=== PATIENT | female | born 1955 | race Caucasian/White ===

== ENCOUNTER 2024-09-11 08:36 | Outpatient (AMB) | payer MEDICARE, OTHER, SELFPAY ==
--- NOTE | 2024-09-11 08:41 | MHC.OFFVIS ---
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 Patient reports ongoing pain for about 4 years. She states that her pain is on the lateral aspect of the hip and occasionally goes down to her ankle. She is having a difficulty putting full weight on her left side. Patient is taking tylenol and Advil with no relief. She has tried PT when she went to [place] a couple years back with no relief. 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 Hernandez is a 69-year-old female with past medical history significant for hypothyroidism and hypercholesterolemia. Patient reports that she had a right knee replacement in 2020 with [facility] in [place]. After the knee replacement the patient reports that she continued to have pain in the left lower extremity. The pain would radiate from the hip into the quad and occasionally down her leg. The recommendation was to perform multiple rounds of physical therapy. After the patient had failed multiple rounds of physical therapy she was referred to [facility] where she underwent a revision left total knee replacement. Again, she went through multiple rounds of physical therapy with continuation of pain. [facility] records are scanned into the patient's chart. While working with physical therapy, two different physical therapist suggested that her pain appear to be stemming from her left hip. She reports that she is unable to do perform the activities that she used to i.e. cleaning, grocery shopping, or ambulating for any length of time. When the patient is grocery shopping she has to use a shopping cart to assist with ambulation. She is also using a cane at baseline and when her pain is severe she uses a walker. Additionally, she has had to hire a house mover supervisor because she is unable to bend. The left hip pain is located along the lateral aspect into the groin and occasionally down the entire left lower extremity to her foot. [facility] Surgical History (Updated 09/11/24 @ 08:54 by Tlyer Ge) History of total left knee replacement (TKR) History of revision of total knee arthroplasty Social History (Updated 09/11/24 @ 08:50 by Tyler Ge) Alcohol intake: never Patient Tobacco Use Status: Never used Tobacco Current occupational status: retired Current occupation: right hand dominant Review of Systems Const All systems reviewed & are unremarkable except as noted in HPI and below Physical Exam Vital Signs: BMI result Body Mass Index 32.2 Const General: cooperative, healthy appearing and no acute distress Resp Effort & Inspection: normal respiratory effort and able to speak in complete sentences Extrem Other: Left hip able to perform straight leg raise with pain. Extreme limitation with internal and external rotation with reproduction of pain in the groin. No tenderness to palpation over the greater trochanteric bursa. 4/5 strength with resisted hip flexion, knee extension, abduction and adduction. NVI. Assessment & Plan Assessment & Plan (1) Osteoarthritis of left hip: Code(s): M16.12 - Unilateral primary osteoarthritis, left hip Category: Medical Plan Ms. Hernandez is a 69-year-old female with past medical history significant for hypothyroidism and hypercholesterolemia. Patient reports that she had a right knee replacement in 2020 with [facility] in [place]. After the knee replacement the patient reports that she continued to have pain in the left lower extremity. The pain would radiate from the hip into the quad and occasionally down her leg. The recommendation was to perform multiple rounds of physical therapy. After the patient had failed multiple rounds of physical therapy she was referred to [facility] with Dr. Andrew where she underwent a revision left total knee replacement. Again, she went through multiple rounds of physical therapy with continuation of pain. [facility] records are scanned into the patient's chart for reference. While working with physical therapy, two different physical therapist suggested that her pain appear to be stemming from her left hip. She reports that she is unable to do perform the activities that she used to i.e. cleaning, grocery shopping, or ambulating for any length of time. When the patient is grocery shopping she has to use a shopping cart to assist with ambulation. She is also using a cane at baseline and when her pain is severe she uses a walker. Additionally, she has had to hire a house mover supervisor because she is unable to bend. The left hip pain is located along the lateral aspect into the groin and occasionally down the entire left lower extremity to her foot. While in the office today, x-rays were obtained and significant severe left hip osteoarthritis. The patient is looking for surgical intervention as this is greatly impacting her quality of life and performance of ADLs. Overall the patient reports that she is healthy with only a past medical history significant for hypothyroidism and high cholesterol. She reports that she sees her PCP every 6 months for a physical. She most recently believes that within the past 2 months she was seen for her most recent physical and there were no concerns. I have set up an appointment with Dr. Silver to discuss left hip total joint replacement, this appointment is scheduled on 09/17/2024. In addition, I have also spoken with our nurse navigator who will see the patient on Tuesday for further discussion as well. A workload message has been sent to her at this time. Patient will follow up on Tuesday with Dr. Silver, sooner if needed. X-rays of the left hip which were obtained while in the office today and were reviewed by me, Chana Plaza PA-C, revealed severe osteoarthritis. Orders: Orders XR hip LT min 2V Today M25.559 - Pain in unspecified hip Coding Level of Care Code New Pt Level 4 (15198) Diagnoses Osteoarthritis of left hip M16.12
[2024-09-11 08:51] VITALS: BMI 32.2
--- OUTSIDE RECORDS SUMMARY | 2024-09-11 08:54 | XMS_ITS | Clinical Summary ---
Author Organization [facility] Address [address] [place] [address] Phone Care Team Providers Care Call Center Supervisor Name Role Phone Heron Deleon DO Primary Care Provider [phone] Allergies Active Allergy Reactions Criticality Noted Date Comments Sulfa (Sulfonamide Antibiotics) Nausea and/or Vomiting,Unknown 01/27/2022 Medications levothyroxine (SYNTHROID, LEVOTHROID) 75 MCG tablet TAKE 1 TABLET BY MOUTH EVERY MORNING ON EMPTY STOMACH FOR 90 DAYS Active rosuvastatin (CRESTOR) 5 MG tablet Take 5 mg by mouth daily. Active cholecalciferol (VITAMIN D3) 2,000 unit capsule Take by mouth daily. Active acetaminophen (TYLENOL) 325 mg tablet Take 3 tablets (975 mg total) by mouth 3 (three) times a day. 5 Active amoxicillin (AMOXIL) 500 MG capsuleIndicati ons:S/P TKR (total knee replacement), right Take 4 tabs 1 hour before dental work for prophylaxis after joint replacement 16 capsule 5 Active Active Problems Problem Noted Date Diagnosed Date S/P revision of total knee, left 03/09/2024 Chronic pain 02/24/2024 Class 2 obesity 02/24/2024 Left knee pain 02/24/2024 Encounters Date Type Department Care Team Description 09/06/2024 Orders Only [facility] [address] [facility] [place] [address] Sil Reis Left hip pain (Primary Dx) 07/31/2024 Orders Only [facility] [address] [facility] [place] [address] Chato Silsam Jean Aftercare following joint replacement surgery (Primary Dx) 06/13/2024 11:45 AM EDT Office Visit [facility] [address] [facility] [place] [address] Maxi Andrew MD Aftercare following left knee joint replacement surgery (Primary Dx) 06/13/2024 10:39 AM EDT - 06/13/2024 11:59 PM EDT Hospital Encounter [facility] - Diagnostic Radiology, [address] [place] [address] [place] [address] Martha Cleary CNP Discharge Disposition: Home or Self Care 06/12/2024 Telephone [facility] [address] [facility] [place] [address] Maxi Andrew MD from Last 3 Months Social History Tobacco Use Types Packs/Day Years [...] Orientation Straight 09/16/2023 9: 05 AM EDT Last Filed Vital Signs Vital Sign Reading Time Taken Comments Blood Pressure 142/83 03/10/2024 7:31 AM EST Pulse 68 03/10/2024 7:31 AM EST Temperature 36.7 C (98 F) 03/10/2024 7:31 AM EST Respiratory Rate 18 03/10/2024 7:31 AM EST Oxygen Saturation 99% 03/10/2024 7:31 AM EST Inhaled Oxygen Concentration - - Weight 72.6 kg (160 lb) 03/09/2024 4:09 PM EST Height 152.4 cm (5') 03/09/2024 4:09 PM EST Body Mass Index 31.25 03/09/2024 4:09 PM EST Plan of Treatment Upcoming Encounters Date Type Department Care Team (Late st Contact Info) Description 09/12/2024 10:00 AM EDT Appointment [facility] - Diagnostic Radiology, [facility] [address] [place] [address] Martha Cleary, BETTE [address] [facility] [address] [place] [address] 09/12/2024 11:15 AM EDT Office Visit [facility] [address] [facility] [place] [address] Maxi Andrew MD [address] [place] [address] [email or web address] Health Maintenance Due Date Last Done Comments Adult Td,Tdap Booster 1953 DEPRESSION SCREENING 1965 HEPATITIS C SCREENING 1971 MAMMOGRAM 1993 COLOGUARD 1998 COLONOSCOPY 1998 COLORECTAL CANCER SCREENING 1998 FIT TEST 1998 FOBT 1998 SIGMOIDOSCOPY 1998 VIRTUAL COLONOSCOPY 1998 PNEUMOCOCCAL VACCINES (50+ years) (1 of 1 - PCV) 2003 ZOSTER VACCINES (1 of 2) 2003 OSTEOPOROSIS SCREENING INITIAL (ONE-TIME) 2018 COVID-19 VACCINE ( season) 2024 10/25/2023, 11/17/2022, 06/29/2022, Additional history exists TSH LEVEL 05/09/2025 05/09/2024 LIPID PANEL 05/09/2029 05/09/2024 RSV VACCINE Completed 02/01/2023 SMOKING STATUS SCREENING (Once After 26 Yrs) Completed 03/09/2024 HEPATITIS A VACCINES Aged Out No long er eligible based on patient's age to complete this topic HIB VACCINES Aged Out No longer eligi ble based on patient's age to complete this topic MENINGOCOCCAL VACCINES (ACWY) Aged Out No longer eligible based on patient's age to complete this topic MENINGOCOCCAL VACCINES (B) Aged Out N o longer eligible based on patient's age to complete this topic Medical Devices Implanted Type Area Management Retail Intern Device Identifier Shelf Expiration Date Model / Serial / Lot [employer] Total Stabilizer Tibial Insert Implanted:Qty: 1 on 03/09/2024 by Maxi Andrew MD at [facility] Left: Knee GUNNAR 10/09/2025 [id number] / / [id number] Description:The implant type , laterality (when applicable), size, and expiration date have been visually and verbally confirmed by the Surgeon, Circulating RN and Scrub Personnel. Procedures Procedure Name Priority Date/Time Associated Diagnosis Comments XR KNEE 3 VIEW (LEFT) Routine 06/13/2024 10:55 AM EDT Aftercare following joint replacement surgery from Last 3 Months Results * XR KNEE 3 VIEW (LEFT) (06/13/2024 10:55 AM EDT) Anatomical Region Laterality Modality Knee Left Computed Radiogr aphy 06/13/2024 11:1 0 AM EDT Impressions 06/13/2024 11:11 AM EDT Revision LEFT total knee arthroplasty Narrative 06/13/2024 11:11 AM EDT XR KNEE 3 VIEW (LEFT) Referring clinician's provided indication for this examination in [facility]: Knee replacement, asymptomatic, follow up COMPARISON: XR BONE LENGTH STUDY FINDINGS: Left Knee: Redemonstration of revision constrained LEFT total knee arthroplasty. Hardware is intact and in anatomic position. No periprosthetic lucency or fracture. No effusion. Frontal evaluation of the right knee demonstrates severe degenerative change. Procedure Note Magan Watts MD - 06/13/2024 XR KNEE 3 VIEW (LEFT) Referring clinician's provided indication for this examination in [facility]:Knee replacement, asymptomatic, follow up COMPARISON: XR BONE LENGTH STUDY FINDINGS: Left Knee: Redemonstration of revision constrained LEFT total kneearthroplasty. Hardware is intact and in anatomic position. Noperiprosthetic lucency or fracture. No effusion. Frontal evaluation of the right knee demonstrates severe degenerativechange. IMPRESSION: Revision LEFT total knee arthroplasty Martha Cleary BOAT WORKER IMG XR LOWER EXTRE MITY Final Result from Last 3 Months Insurance MEDICARE PART A & B [employer] MEDICARE SUPPLEMENT MEDICARE PART A & B [employer] MEDICARE SUPPLEMENT MEDICARE PART A & B [employer] MEDICARE SUPPLEMENT MEDICARE PART A & B [employer] MEDICARE SUPPLEMENT MEDICARE PART A & B [facility] MEDICARE SUPPLEMENT MEDICARE PART A & B [employer] [facility] EXT[employer]ION MEDICARE SUPPLEMENT Care Teams Call Center Supervisor Relationship Specialty Start Date End Date Heron Deleon DO [address] [place] [address] [address] [place] [address] PCP - General Internal Medicine 09/16/23 Additional Source Comments The information contained in this document represents components of the legal health record. It is not the complete legal health record.[facility]
--- OUTSIDE RECORDS SUMMARY | 2024-09-11 08:54 | XMS_ITS | Data Portability ---
Author Organization [facility], [facility] Address [address] [place] [address] Care Team Providers Care Curve Cleaner Name Role Phone CHATO BAXTER Primary Care Provider [phone] Assessment Encounter Date Assessment Date Assessment LastModified by Organization Details LastModified Time 04/23/2024 04/23/2024 I am seeing the patient today under the supervision of Dr. Andrews who was available but who did not see the patient. HPI: Patient comes in for recheck of right knee pain. Has known osteoarthritis in the medial compartment of the knee(s). Been treated conservatively with cortisone injection to this point with 3 months relief of symptoms. No new injury or modalities. Past family, medical, social history and review of systems has been reviewed, updated and is located in the patient s chart. Examination:The patient is well appearing and in no apparent distress. Alert and oriented x3. Vital signs per intake sheet. Examination of the right knee reveals Mild effusion. No erythema or warmth. Decreased range of motion. Slight varus deformity. Point tender over the medial joint line. Calf soft and nontender. 4+/5 strength of knee flexion extension. Impression: Osteoarthritis, right knee Plan: Nature of the diagnosis discussed with the patient today. Both surgical and nonsurgical options were reviewed. Conservative measures were discussed at length including but not limited to physical therapy, bracing, anti-inflammatori es and injection therapies. Please see the procedure note for documentation about the injection performed today. Follow-up with us in 3 months for discussion of continued conservative management versus surgical management. [email or web address] Not available 04/23/2024 16:47:25 08/02/2024 08/02/2024 I am seeing the patient today under the supervision of who was available but who did not see the patient. HPI: Patient comes in for recheck of right knee pain. Has known osteoarthritis in the medial compartment of the knee(s). Been treated conservatively with cortisone injection to this point with 3 months relief of symptoms. No new injury or modalities. Past family, medical, social history and review of systems has been reviewed, updated and is located in the patient s chart. Examination:The patient is well appearing and in no apparent distress. Alert and oriented x3. Vital signs per intake sheet. Examination of the right knee reveals Mild effusion. No erythema or warmth. Decreased range of motion. Slight varus deformity. Point tender over the medial joint line. Calf soft and nontender. 4+/5 strength of knee flexion extension. Impression: Osteoarthritis, right knee Plan: Nature of the diagnosis discussed with the patient today. Both surgical and nonsurgical options were reviewed. Conservative measures were discussed at length including but not limited to physical therapy, bracing, anti-inflammatori es and injection therapies. Please see the procedure note for documentation about the injection performed today. Follow-up with us in 3 months for discussion of continued conservative management versus surgical management. [email or web address] Not available 08/02/2024 07:53:30 Plan of Treatment Reminders Order Date Submit Date Provider Last Modified By Organization Details Last Modified Time Details Appointments RECHECK 15 2024 10:00A M Ezequiel Prater PA-C Not available Not available Not available Lab None recorded . Referral None recorded . Procedures None recorded . Surgeries None recorded . Imaging XR, knee, 4 or more view - recheck right knee pain room 218 2024 025 [facility], [address], [place], [address], 05/07/2024 15:45:56 Medication Orders None recorded . Patient TargetsNo targets recorded. Patient InstructionsNo instructions recorded. Reason for Referral None Reported. Results Created Date Observation Date Name Description Value Unit Range Abnormal Flag Note LastModifiedBy Organization Detail LastModifiedTime 04/24/19 25 04/23/2024 XR, knee, 4 or more view http:/ [email or web address] ?Encry pted=s hAaTro YD8dLq bEUv6g %2BXZw aYqtaq 0bqfl% 2Fg9IQ a4ajBk vP9nXo QUaueC m3YtLR FvZlgJ JJ8mAn HZtai3 5v4325 AC0KqY n2FV6K lKiQtr MwF INTERFACE [facility] [address], [address], 04/23/2024 16:12:24 04/24/19 25 04/23/2024 XR, knee, 4 or more view http:/ [email or web address] ?Encry pted=everett Gallo YD8dLq bEUv6g %2BXZw aYqtaq 0bqfl% 2Fg9IQ a4ajBk vP9nXo QUaueC m3YtLR FvZlgJ JJ8mAn HZtai3 9i1041 AC0KqY n2FV6K lKiQtr MwF INTERFACE [facility] [address], [address], 04/23/2024 16:12:26 Result Notes Documentation Provider Name and Address Organization Details Recorded Time Xr, Knee, 4 Or More View : [email or web address] Encrypted=ltQsCzvRJ5yItaC Uv6g%5XHJlcWajzz4zcbu%2Fg 2VDe8mtMraH1aNtPXvuqKp2Gq DWQlLnfCCK4jKwAOppr84t210 8ER7WtOu3NW8WuArHbuThF Not Available [facility] 04/23/2024 16:12: 24 Xr, Knee, 4 Or More View : [email or web address] Encrypted=xzXhHgcZO7fOeuL Uv6g%3KAUcbQsfzd4dnyw%2Fg 9UTk5eeQtfE6nHuWBokkHe9Nb YTYqGrjADL2eKeAJvpx88o022 5YX3PdZf6QR7YpMkVozVcQ Not Available [facility] 04/23/2024 16:12: 26 Problems Name Problem SNOMED Code Status Onset Date Resolution Date Notes Provider Name and Address Organization Details Recorded Time No complaint s 626640832 Active Status: 'I'; Not Available [facility] 4 09:26:48 Idiopathi c osteoarth ritis 750262379 Active 2016 Problem Code: M17.0; Problem Code Type: ICD-10; Status: 'A'; Not Available [facility] 4 11:27:38 Pain of right knee joint 410681896379 100 Active 2016 Problem Code: M25.561; Problem Code Type: ICD-10; Status: 'A'; KAJAQUAN L'HEUREUMaurice [facility] 5 15:58:55 History of major orthopedi c surgery 337024996 Active 2021 Status: 'A'; Not Available [facility] 4 11:27:38 Osteoarth ritis of right knee joint 657354630935 100 Active 2023 Kalyani Willoughby PA-C [address], [place], [address] , [facility] 4 08:38:20 Problem Notes None recorded. Procedures Surgical History Date Name Laterality Status Provider Name and Address Organization Details Recorded Time 5 JZKNEE INJ completed Ezequiel Prater PA-C [address], [place], [address], [facility] 08/02/2024 07:53:18 5 JZKNEE INJ completed Ezequiel Prater PA-C [address], [place], [address], [facility] 04/23/2024 11:00:43 5 Orthopedic Surgery completed KAYLIA L'HEUREUX [facility] 04/23/2024 15:57:49 4 Sports Knee 4&1 completed Kalyani Willoughby PA-C [address], [place], [address], [facility] 10/26/2023 12:03:03 4 Sports Knee 4&1 completed Kalyani Willoughby PA-C [address], [place], [address], [facility] 07/28/2023 08:38:15 1 Knee Surgery completed TOMASZ Chatterjee [facility] 10/27/2023 09:38:46 5 Knee Surgery completed KAYLIA L'HEUREUX [facility] 04/23/2024 15:57:49 Imaging Results None recorded. Procedure Notes None recorded. Medical Equipment None Reported. Allergies Allergen ID Allergen Name Allergen Category Reaction Reaction Severity Criticality Documentation Date Start Date Code Code System Note Provider Name and Address Organization Details Recorded Time 02053 [facility] n Not available Not available Not available 04/18/20232022 53633 RxNorm Not Available [facility] 12:44:35 Medications Name Sig Start Date Stop Date Status Note LastModified by Organization Details LastModified Time celecoxib 200 mg capsule TAKE 1 CAPSULE BY MOUTH TWICE A DAY 04/20 completed Not Available Not Available Not Available amoxicillin 500 mg capsule TAKE 4 CAPSULES 1 HOUR BEFORE DENTAL WORK FOR PROPHYLAX IS AFTER JOINT REPLACEME NT active Not Available Not Available No t Available ofloxacin 0.3 % eye drops INSTILL 1 DROP IN RIGHT EYE FOUR TIMES A DAY TO BEGIN 6 HOURS AFTER SURGERY AND USE FOR 7 DAYS 07/26 completed Not Available Not Available Not Available meloxicam 15 mg tablet TAKE 1 TABLET BY MOUTH EVERY DAY FOR 30 DAYS 04/20 completed Not Available Not Available Not Available ciprofloxac in 500 mg tablet TAKE 1 TABLET BY MOUTH EVERY 12 HOURS FOR 7 DAYS 07/26 completed Not Available Not Available Not Available aspirin 81 mg tablet,sancho yed release TAKE 1 TABLET (81 MG TOTAL) BY MOUTH 2 (TWO) TIMES A DAY FOR 58 DOSES. active Not Available Not Available No t Available levothyroxi ne 75 mcg tablet TAKE 1 TABLET BY MOUTH EVERY MORNING ON EMPTY STOMACH active Not Available Not Available No t Available ketorolac 0.5 % eye drops INSTILL 1 DROP IN LEFT EYE FOUR TIMES A DAY TO BEGIN 6 HOURS AFTER SURGERY AND USE UNTIL EMPTY 07/26 completed Not Available Not Available Not Available cefadroxil 500 mg capsule TAKE 1 CAPSULE (500 MG TOTAL) BY MOUTH EVERY 12 (TWELVE) HOURS FOR 28 DOSES. 04/23 completed Not Available Not Available Not Available prednisolon e acetate 1 % eye drops,suspe nsion INSTILL 1 DROP IN LEFT EYE FOUR TIMES A DAY TO BEGIN 6 HOURS AFTER SURGERY AND CONTINUE UNTIL EMPTY 07/26 completed Not Available Not Available Not Available cephalexin 500 mg capsule TAKE 1 CAPSULE BY MOUTH TWICE A DAY FOR 10 DAYS active Not Available Not Available No t Available polymyxin B sulfate 10,000 unit-trimet hoprim 1 mg/mL eye drops INSTILL 1 DROP IN RIGHT EYE FOUR TIMES A DAY BEGIN 6 HOURS AFTER SURGERY AND CONTINUE FOR 7 DAYS 07/26 completed Not Available Not Available Not Available metronidazo le 0.75 % topical cream APPLY TO FACE EVERY DAY 04/23 completed Not Available Not Available Not Available omeprazole 20 mg capsule,del ayed release TAKE 1 CAPSULE (20 MG TOTAL) BY MOUTH DAILY FOR 13 DOSES. 04/23 completed Not Available Not Available Not Available oxycodone 5 mg tablet TAKE 1 TO 2 TABLETS (5-10 MG TOTAL) BY MOUTH EVERY 4 HOURS NEEDED (PARTIAL FILL OKAY) 04/23 completed Not Available Not Available Not Available rosuvastati n 5 mg tablet TAKE 1 TABLET BY MOUTH EVERY DAY FOR 90 DAYS active Not Available Not Available No t Available nitrofurant oin monohydrate /macrocryst als 100 mg capsule TAKE 1 CAPSULE (ORAL) 2 TIMES PER DAY FOR 5 DAYS MUST ADMINISTE R WITH A MEAL/FOOD active Not Available Not Available No t Available duloxetine 30 mg capsule,del ayed release TAKE 1 CAPSULE BY MOUTH EVERY DAY 04/20 completed Not Available Not Available Not Available duloxetine 60 mg capsule,del ayed release TAKE 1 CAPSULE BY MOUTH EVERY DAY 04/23 completed Not Available Not Available Not Available Vitals Date Recorded Body height Body mass index (BMI) Body weight Provider Name and Address Organization Details Last Updated DateTime 04/23/2024 149.86 cm 34.3 kg/m2 38548.7 g KAYLIA L'HEUREUX [facility] 04/23/2024 15:58:02 Date Recorded Body height Body mass index (BMI) Body weight Provider Name and Address Organization Details Last Updated DateTime 07/28/2023 149.86 cm 34.3 kg/m2 64506.7 g TOMASZ SHAHRIARSHANELLE Chatterjee [facility] 07/28/2023 10:28:33 Date Recorded Body height Body mass index (BMI) Body weight Provider Name and Address Organization Details Last Updated DateTime 08/02/2024 149.86 cm 34.3 kg/m2 98334.7 g SCOTTIE OCASIO [facility] 08/02/2024 10:38:17 Date Recorded Body height Body mass index (BMI) Body weight Provider Name and Address Organization Details Last Updated DateTime 10/27/2023 149.86 cm 34.3 kg/m2 63346.7 g TOMASZ PANKAJ Shena [facility] 10/27/2023 09:39:09 Social History Question Answer Notes LastModified by [employer] ion Details LastModified Time Tobacco Smoking Status Never Smoker TOMASZ HORACE navarrete [facility] 07/28/2023 10:28:45 Which Of Your Hands Is Dominant? Right Information not available 07/28/2023 What Is Your Relationship Status? [email or web address] Information not available 08/02/2024 Sex: Unknown Functional Status Question Answer Note LastModified by [employer] ion Details LastModified Time How many times per week do you consume alcohol? Less than 1 time per week Information not available 07/28/2023 Do you use any illicit or recreational drugs? No Information not available 07/28/2023 Do you or have you ever used any other forms of tobacco or nicotine? No Information not available 07/28/2023 Do you or have you ever used e-cigarettes or vape? Never used electronic cigarettes Information not available 07/28/2023 Mental Status None recorded. Family History Nothing Reported. Medical History Condition Response Allergies/Hayfever N Coronary Artery Disease N Breathing or lung disorders N Anxiety/Depression N Emphysema N Nerve Disorders N Thyroid Problems Y COPD N Pacemaker N Kidney/Bladder Problems N Anemia N Vascular Disease N Heart Trouble N Heart Attack ([place]) N Gastrointestinal Disease N Cholesterol Y Diabetes N Autoimmune disease N Bleeding Disorder N Orthotics N Seizures/Epilepsy N Arthritis Y Blood Clot N AIDS/HIV N Congestive Heart Failure (CHF) N Acid Reflux (GERD) N Cancer N Stroke N Asthma N Circulation Problems N Peripheral Vascular Disease N Sleep Apnea N Hepatitis N Heart Disease N Rheumatoid Arthritis N Pulmonary Embolism N Arrhythmia N Headaches N Fibromyalgia N Hypertension N Osteoporosis N Gynecological HistoryNo gynecological history recorded. Obstetrics History GPAL:G 0 P 0 0 0 0 Past Encounters Encounter ID Performer Location Encounter Start Date Encounter Closed Date Diagnosis/Indication Diagnosis SNOMED-CT Code Diagnosis ICD10 Code Diagnosis Note [id number] Kalyani Willoughby PA-C [place] [address] [place] [address] 07/28/2023 10:05:17 08/17/2023 14:32:15 Osteoarthritis of right knee joint 2382252366 88397 M17.11 History of total knee arthroplasty 4598329769 105 Z96.106 [id number] Kalyani Willoughby PA-C [place] [address] [place] [place] [address] 10/27/2023 09:31:14 11/09/2023 10:31:16 Osteoarthritis of right knee joint 6059737757 76854 M17.11 History of total knee arthroplasty 6957670584 105 Z96.064 [id number] FRANKLYN Jin [address] [place] [address] 04/23/2024 15:40:10 05/07/2024 15:45:55 Osteoarthritis of right knee joint 4497002663 34244 M17.11 Pain of ri ght knee joint 6534844296 59534 M25.112 [id number] FRANKLYN Jin [address] [place] [address] 08/02/2024 10:19:33 08/15/2024 08:35:08 Osteoarthritis of right knee joint 5842087494 97676 M17.11 Health Concerns Section Related Observation LastModified by Organization Detai ls LastModified Time None Recorded Concern Status LastModified by Organization Details LastModified Time None Recorded Advance Directives Directive None Recorded Payers Insurance Date Sequence Insurance Name Policy Number Policy Nunez Covered Member ID Nunez Member ID Guarantor Name 07/30/2024 1 MEDICARE B-[place]: [facility] [employer] Katie Hernandez [id number] Katie Hernandez 08/15/2024 2 [facility] INDEMNITY PLAN - [facility] [id number] Katie Hernandez [id number] Katie Hernandez OBGyn Episode No OBEpisode recorded.
--- OUTSIDE RECORDS SUMMARY | 2024-09-11 08:54 | XMS_ITS | Clinical Summary ---
Author Organization 200 [facility] Address 200 [facility] [place] [address] Phone Care Team Providers Care Bottom Painter Name Role Phone Britt Parmar NP Primary Care Provider Encounters Date Type Department Care Team Description 08/07/2024 8:59 AM EDT - 08/07/2024 11:59 PM EDT [facility] [address] [phone] Encounter for screening mammogram for malignant neoplasm of breast Discharge Disposition: Home or Self Care 08/07/2024 8:58 AM EDT - 08/07/2024 11:59 PM EDT Hospital Encounter [facility] Bone Density [address] [place] [phone] Asymptomatic menopausal state Discharge Disposition: Home or Self Care from Last 3 Months Family History Medical History Relation Name Comments Breast cancer Mother Relation Name Status Comments Mother Social History Tobacco Use Types Packs/Day Years Used Date Smoking Tobacco: Never Smokeless Tobacco: Never Alcohol Use Standard Drinks/Week Comments Not Currently 0 (1 standard drink = 0.6 oz pur e alcohol) Comments No Sex and Gender Information Value Date Recorded Sex Assigned at Female 05/29/2024 10:31 AM EDT Legal Sex Female 5:48 AM EST Gender Identity Female 05/29/2024 10:31 AM EDT Sexual Orientation Straight 05/29/2024 10 :31 AM EDT Obstetrics History Para Term AB IAB SAB Ectopic Multiple Livin g Live Births 1 Last Filed Vital Signs Vital Sign Reading Time Taken Comments Blood Pressure 158/89 10/18/2023 10:17 AM EDT Si tting R Arm Pulse 63 10/18/2023 10:17 AM EDT Temperature - - Respiratory Rate - - Oxygen Saturation - - Inhaled Oxygen Concentration - - Weight 74.8 kg (165 lb) 08/07/2024 9:04 AM EDT Height 152.4 cm (5') 08/07/2024 9:04 AM EDT Body Mass Index 32.22 08/07/2024 9:04 AM EDT Plan of Treatment Health Maintenance Due Date Last Done Comments DTaP,Tdap,and Td Vaccines (1 - Tdap) 02/22/1972 Pneumococcal Vaccine: 50+ Years (1 of 1 - PCV) 2003 Zoster Vaccines (1 of 2) 2003 Colorectal Cancer Screening: Colonoscopy 01/17/2022 Falls Risk Assessment 01/17/2022 Hepatitis C Screening 01/17/2022 Medicare Annual Wellness Visit 01/17/2022 Social Influencers of Health Screening 01/17/2022 Depression Screening 02/15/2024 COVID-19 Vaccine ( season) 2024 10/25/2023, 11/17/2022, 06/29/2022, Additional history exists Influenza Vaccine (#1) 2024 , 04/05/2023, 11/19/2021, Additional history exists Hypertension/CHF/CAD Annual BMP Blood Test 05/09/2025 05/09/2024, 01/25/2024 Breast Cancer Screening 08/07/2026 08/08/19, 06/28/2023, 06/21/2022, Additional history exists Cholesterol Screening (Lipid Panel) 05/09/2029 05/09/2024 Osteoporosis Screening (Bone Density Screening) 08/07/2034 08/07/2024, 09/07/2017 RSV Immunization Adult Patients Completed 02/01/2023 HIB Vaccines Aged Out No longer eligi ble based on patient's age to complete this topic HPV Vaccines Aged Out No longer eligi ble based on patient's age to complete this topic Hepatitis A Vaccines Aged Out No long er eligible based on patient's age to complete this topic Hepatitis B Vaccines Aged Out No long er eligible based on patient's age to complete this topic IPV Vaccines Aged Out No longer eligi ble based on patient's age to complete this topic MMR Vaccines Aged Out No longer eligi ble based on patient's age to complete this topic Meningococcal ACWY Vaccine Aged Out N o longer eligible based on patient's age to complete this topic Meningococcal B Vaccine Aged Out No l onger eligible based on patient's age to complete this topic RSV Immunization Patients Under 20 months Aged Out No longer eligible based on patient's age to complete this topic Varicella Vaccines Aged Out No longer eligible based on patient's age to complete this topic Procedures Procedure Name Priority Date/Time Associated Diagnosis Comments BD BONE DENSITY DXA AXIAL SKELETON Routine 08/07/2024 9:42 AM EDT Asymptomatic menopausal state MG MAMMO DIGITAL SCREENING W BENJAMIN BILAT Routine 08/07/2024 9:16 AM EDT Encounter for screening mammogram for malignant neoplasm of breast COMPREHENSIVE METABOLIC PANEL Routine 05/09/2024 11:22 AM EDT Myxedema heart disease Hyperlipemia Impaired fasting glucose LIPID PANEL WITH REFLEX TO DIRECT LDL Routine 05/09/2024 11:22 AM EDT Myxedema heart disease Hyperlipemia Impaired fasting glucose from Last 3 Months or Most Recently Relevant to Health Maintenance Results * BD Bone Density DXA Axial Skeleton (08/07/2024 9:42 AM EDT) Anatomical Region Laterality Modality Wrist, Hip, L-spine Bone Densito metry 08/07/2024 9:53 AM EDT Impressions 08/07/2024 9:55 AM EDT 1. Osteoporosis. There has been an increase of 3.8% in bone mineral density in the lumbar spine since the prior examination of 09/07/2017. There has been a decrease of 22.6% in bone mineral density in the right femur and a decrease of 41.9% in bone mineral density in the left femur. 2. FRAX analysis yields a 10-year probability of major osteoporotic fracture of 20.1% and a 10-year probability of hip fracture of 4.6%. Code 03686 -------- FINAL REPORT -------- Dictated By: Kenny Jorgensen Dictated Date: 08/07/2024 09:53 ET Assigned Physician: Kenny Jorgensen Reviewed and Electronically Signed By: Kenny Jorgensen Signed Date: 08/07/2024 09:55 ET Workstation ID: [id number] Transcribed By: Self Edit Transcribed Date: 08/07/2024 09:53 ET Narrative 08/07/2024 9:55 AM EDT HISTORY: The patient is a 69-year-old postmenopausal female with clinical concern for metabolic bone disease. FINDINGS: Dual energy x-ray absorptiometry of the lumbar spine and femurs is performed. The mean bone mineral density at L1-L4 (with the exclusion of L3) is 1.013 gm/cm2 which is 87% of that of young normals and 100% of that of age matched controls. This yields a T-score of -1.3 and a Z-score of 0.0 which is diagnostic of osteopenia. The mean bone mineral density of the femurs bilaterally is 0.666 gm/cm2 which is 66% of that of young normals and 79% of that of age matched controls. This yields a T-score of -2.7 and a Z-score of -1.4 which is diagnostic of osteoporosis. The T score of the total left femur is -3.2 which is diagnostic of osteoporosis. Procedure Note Kenny Jorgensen MD - 08/07/2024 HISTORY: The patient is a 69-year-old postmenopausal female with clinicalconcern for metabolic bone disease. FINDINGS: Dual energy x-ray absorptiometry of the lumbar spine and femursis performed. The mean bone mineral density at L1-L4 (with the exclusionof L3) is 1.013 gm/cm2 which is 87% of that of young normals and 100% ofthat of age matched controls. This yields a T-score of -1.3 and a Z-scoreof 0.0 which is diagnostic of osteopenia. The mean bone mineral density of the femurs bilaterally is 0.666 gm/kv4qaemg is 66% of that of young normals and 79% of that of age matchedcontrols. This yields a T-score of -2.7 and a Z-score of -1.4 which isdiagnostic of osteoporosis. The T score of the total left femur is -3.2which is diagnostic of osteoporosis. IMPRESSION: 1. Osteoporosis. There has been an increase of 3.8% in bone mineraldensity in the lumbar spine since the prior examination of 09/07/2017.There has been a decrease of 22.6% in bone mineral density in the rightfemur and a decrease of 41.9% in bone mineral density in the left femur. 2. FRAX analysis yields a 10-year probability of major osteoporoticfracture of 20.1% and a 10-year probability of hip fracture of 4.6%. Code 66917 -------- FINAL REPORT -------- Dictated By: Kenny Jorgensen Dictated Date: 08/07/2024 09:53 ET Assigned Physician: Kenny Jorgensen Reviewed and Electronically Signed By: Kenny Jorgensen Signed Date: 08/07/2024 09:55 ET Workstation ID: [id number] Transcribed By: Self Edit Transcribed Date: 08/07/2024 09:53 ET Heron Deleon DO [facility] DXA PROCEDURES Final Resu lt * MG Mammo Digital Screening w Benjamin bilat (08/07/2024 9:16 AM EDT) Anatomical Region Laterality Modality Breast Bilateral Mammography 08/07/2024 2:34 PM EDT Impressions 08/07/2024 2:35 PM EDT No evidence of breast malignancy. BI-RADS CATEGORY: 1 - NEGATIVE RECOMMENDATION: Screening bilateral mammogram is recommended in 1 year. Mammo Location: [facility], [address] [place] [address], [id number], . -------- FINAL REPORT -------- Dictated By: Molly Martell Dictated Date: 08/07/2024 14:34 ET Assigned Physician: Molly Martell Reviewed and Electronically Signed By: Molly Martell Signed Date: 08/07/2024 14:35 ET Workstation ID: [id number] Transcribed By: Self Edit Transcribed Date: 08/07/2024 14:34 ET Narrative 08/07/2024 2:35 PM EDT CLINICAL: 69 years old, Female, routine annual exam. COMPARISON: 06/28/2023, 06/19/2022, 06/17/2021, 03/18/2020 and 03/01/2019 TECHNIQUE: Bilateral MLO and CC views were obtained digitally with 3-D mammogram (digital breast tomosynthesis). Computer-aided detection was utilized in evaluation of this exam (CAD). FINDINGS: There is no evidence of suspicious mass or architectural distortion. No worrisome calcifications are evident. There has been no significant change from prior exam(s). BREAST DENSITY: A - The breasts are almost entirely fatty. Procedure Note Molly Martell MD - 08/07/2024 CLINICAL: 69 years old, Female, routine annual exam. COMPARISON: 06/28/2023, 06/19/2022, 06/17/2021, 03/18/2020 and 03/01/2019 TECHNIQUE: Bilateral MLO and CC views were obtained digitally with 3-Dmammogram (digital breast tomosynthesis). Computer-aided detection wasutilized in evaluation of this exam (CAD). FINDINGS: There is no evidence of suspicious mass or architectural distortion. Noworrisome calcifications are evident. There has been no significantchange from prior exam(s). BREAST DENSITY: A - The breasts are almost entirely fatty. IMPRESSION: No evidence of breast malignancy. BI-RADS CATEGORY: 1 - NEGATIVE RECOMMENDATION: Screening bilateral mammogram is recommended in 1 year. Mammo Location: [facility], [address] [place] [address], [id number], . -------- FINAL REPORT -------- Dictated By: Molly Martell Dictated Date: 08/07/2024 14:34 ET Assigned Physician: Molly Martell Reviewed and Electronically Signed By: Molly Martell Signed Date: 08/07/2024 14:35 ET Workstation ID: [id number] Transcribed By: Self Edit Transcribed Date: 08/07/2024 14:34 ET us Heron Deleon DO IMG BI PROCEDURES Final Resul t * Lipid panel with reflex to direct LDL (05/09/2024 11:22 AM EDT) Cholesterol 184 0 - 200 mg/dL LAB CHEMISTRY METHOD 05/09/2024 4:10 PM EDT [facility] Triglycerides 83 0 - 150 mg/dL LAB CHEMISTRY METHOD 05/09/2024 4:10 PM EDT [facility] HDL 80 >=40 mg/dL LAB CHEMISTRY METHOD 05/09/2024 4:10 PM EDT [facility] LDL Calculated 87 0 - 100 mg/dL LAB CHEMISTRY METHOD 05/09/2024 4:10 PM EDT [facility] VLDL Cholesterol Armin 16.6 mg/dL LAB CHEMISTRY METHOD 05/09/2024 4:10 PM EDT [facility] Non HDL Chol. (LDL+VLDL) 104 <145 mg/dL LAB CHEMISTRY METHOD 05/09/2024 4:10 PM EDT [facility] Chol/HDL Ratio 2.3 0.0 - 4.4 LAB CHEMISTRY METHOD 05/09/2024 4:10 PM EDT [facility] Blood Venous blood specimen / Unknown Venipuncture / Unknown 05/09/2024 11:22 AM EDT 05/09/2024 11:22 AM EDT us Britt Parmar RADIO INTERFERENCE TROUBLE SHOOTER LAB BLOOD ORDERABLES Fi nal Result [facility] [address] [place] [address], * Comprehensive metabolic panel (05/09/2024 11:22 AM EDT) Pathologist [facility] Sodium 142 133 - 145 mmol/L LAB CHEMISTRY METHOD 05/09/2024 4:10 PM T [facility] Potassium 4.5 3.5 - 5.5 mmol/L LAB CHEMISTRY METHOD 05/09/2024 4:10 PM EDT [facility] Chloride 107 96 - 110 mmol/L LAB CHEMISTRY METHOD 05/09/2024 4:[address] [facility] CO2 27 21 - 32 mmol/L LAB CHEMISTRY METHOD 05/09/2024 4:[address] [facility] Anion Gap 8 3 - 11 LAB CHEMISTRY METHOD 05/09/2024 4:[address] [facility] Glucose 85 70 - 100 mg/dL LAB CHEMISTRY METHOD 05/09/2024 4:[address] [facility] BUN 20 5 - 25 mg/dL LAB CHEMISTRY METHOD 05/09/2024 4:[address] [facility] Creatinine 0.78 0.50 - 1.10 mg/dL LAB CHEMISTRY METHOD 05/09/2024 4:[address] [facility] eGFR 81 >=60 mL/min/1. 73m2 LAB CHEMISTRY METHOD 05/09/2024 4:[address] [facility] Comment:Calculation based on the Chronic Kidney Disease Epidemiology Collaboration (CKD-EPI) equation refit without adjustment for race. BUN/Creatinine Ratio 25.6 LAB CHEMISTRY METHOD 05/09/2024 4:[address] [facility] Calcium 10.3 8.5 - 10.5 mg/dL LAB CHEMISTRY METHOD 05/09/2024 4:[address] [facility] AST (SGOT) 13 10 - 42 unit/L LAB CHEMISTRY METHOD 05/09/2024 4:[address] [facility] ALT (SGPT) 20 10 - 60 unit/L LAB CHEMISTRY METHOD 05/09/2024 4:[address] [facility] Alkaline Phosphatase 79 42 - 121 unit/L LAB CHEMISTRY METHOD 05/09/2024 4:[address] [facility] Total Protein 7.2 6.0 - 8.0 g/dL LAB CHEMISTRY METHOD 05/09/2024 4:[address] [facility] Albumin 4.1 3.2 - 5.0 g/dL LAB CHEMISTRY METHOD 05/09/2024 4:10 PM EDT [facility] Total Bilirubin 0.7 0.0 - 1.4 mg/dL LAB CHEMISTRY METHOD 05/09/2024 4:10 PM EDT [facility] Blood Venous blood specimen / Unknown Venipuncture / Unknown 05/09/2024 11:22 AM EDT 05/09/2024 11:22 AM EDT us Britt Parmar NP LAB BLOOD ORDERABLES Fi nal Result [facility] [address] [place] [address], from Last 3 Months or Most Recently Relevant to Health Maintenance Insurance MEDICARE [facility] Care Teams Bottom Painter Relationship Specialty Start Date End Date Britt Parmar NP [address] [place] [address] [place] [phone] [facility] - General 07/08/23
== END 2024-09-11 09:26 | disposition home or self-care (01) ==
LOC: HO.HOS 08:37
PROVIDERS: Visit Provider Physician Assistant
DX: M16.12 Unilateral primary osteoarthritis, left hip (principal)
CPT/HCPCS: 99204

== ENCOUNTER → 2024-09-11 08:38 | Outpatient (BNV) | payer MEDICARE, OTHER, SELFPAY | PROVIDERS: Visit Provider Radiology Diagnostic Radiology | DX: M16.12 Unilateral primary osteoarthritis, left hip (principal) | CPT/HCPCS: 73502 ==

== ENCOUNTER 2024-09-11 10:52 | Outpatient (REF) | payer MEDICARE, OTHER, SELFPAY ==
--- NOTE | ~2024-09-11 | XR_ITS ---
CLINICAL HISTORY: M25.559 - Pain in unspecified hip Pelvis and left hip two views Comparison: None provided Findings: No acute fracture or dislocation identified. Severe degenerative change in the left hip. Acetabular remodeling and expansion noted. Subchondral cysts left acetabulum and femoral head. Moderate degenerative change in right hip. No radiopaque foreign body noted. Impression: Severe degenerative change left hip No acute bony abnormality This document has been electronically signed by: Deandre Mane MD on 09/11/2024 21:10:31
--- OUTSIDE RECORDS SUMMARY | 2024-09-12 11:54 | XMS_ITS | Clinical Summary ---
Author Organization 200 [facility] Address 200 [place] [address] Phone Care Team Providers Care Court Bailiff Name Role Phone Britt Parmar NP Primary Care Provider Encounters Date Type Department Care Team Description 08/07/2024 8:59 AM EDT - 08/07/2024 11:59 PM EDT [facility] [address] [phone] Encounter for screening mammogram for malignant neoplasm of breast Discharge Disposition: Home or Self Care 08/07/2024 8:58 AM EDT - 08/07/2024 11:59 PM EDT Hospital Encounter [facility] Bone Density [address] [place] [phone] Asymptomatic menopausal state Discharge Disposition: Home or [...] probability of hip fracture of 4.6%. Code 38965 -------- FINAL REPORT -------- Dictated By: Kenny Jorgensen Dictated Date: 08/07/2024 09:53 ET Assigned Physician: Kenny Jorgensen Reviewed and Electronically Signed By: Kenny Jorgensen Signed Date: 08/07/2024 09:55 ET Workstation ID: [id number] Transcribed By: Self Edit Transcribed Date: 08/07/2024 [...] density of the femurs bilaterally is 0.666 gm/sb6mekqt is 66% of that of young normals [...] probability of hip fracture of 4.6%. Code 58845 -------- FINAL REPORT -------- Dictated By: Kenny Jorgensen Dictated Date: 08/07/2024 09:53 ET Assigned Physician: Kenny Jorgensen Reviewed and Electronically Signed By: Kenny Jorgensen Signed Date: 08/07/2024 09:55 ET Workstation ID: [id number] Transcribed By: Self Edit Transcribed Date: 08/07/2024 09:53 ET Heron Deleon DO [facility] DXA PROCEDURES Final Resu lt * MG Mammo Digital Screening w Benjamin bilat (08/07/2024 9:16 AM EDT) Anatomical Region Laterality Modality Breast Bilateral Mammography 08/07/2024 2:34 PM EDT Impressions 08/07/2024 2:35 PM EDT No evidence of breast malignancy. BI-RADS CATEGORY: 1 - NEGATIVE RECOMMENDATION: Screening bilateral mammogram is recommended in 1 year. Mammo Location: [facility], [address] [place] [address], [id number], . -------- FINAL REPORT -------- Dictated By: Molly Martell Dictated Date: 08/07/2024 14:34 ET Assigned Physician: Molly Martell Reviewed and Electronically Signed By: Molly Martell Signed Date: 08/07/2024 14:35 ET Workstation ID: [id number] Transcribed By: Self Edit Transcribed Date: 08/07/2024 [...] year. Mammo Location: [facility], [address] [place] [address], [address], . -------- FINAL REPORT -------- Dictated By: Molly Martell Dictated Date: 08/07/2024 14:34 ET Assigned Physician: Molly Martell Reviewed and Electronically Signed By: Molly Martell Signed Date: 08/07/2024 14:35 ET Workstation ID: [id number] Transcribed By: Self Edit Transcribed Date: 08/07/2024 14:34 ET us Heron Deleon DO IMG BI PROCEDURES Final Resul t * Lipid panel with reflex to direct LDL (05/09/2024 11:22 AM EDT) Cholesterol 184 0 - 200 mg/dL LAB CHEMISTRY METHOD 05/09/2024 4:10 PM EDT [facility] Triglycerides 83 0 - 150 mg/dL LAB CHEMISTRY METHOD 05/09/2024 4:10 PM EDT [facility] HDL 80 >=40 mg/dL LAB CHEMISTRY METHOD 05/09/2024 4:10 PM EDT [facility] LDL Calculated 87 0 - 100 mg/dL LAB CHEMISTRY METHOD 05/09/2024 4:10 PM EDT [facility] VLDL Cholesterol Armin 16.6 mg/dL LAB CHEMISTRY METHOD 05/09/2024 4:10 PM EDT [facility] Non HDL Chol. (LDL+VLDL) 104 <145 mg/dL LAB CHEMISTRY METHOD 05/09/2024 4:10 PM EDT [facility] Chol/HDL Ratio 2.3 0.0 - 4.4 LAB CHEMISTRY METHOD 05/09/2024 4:10 PM EDT [facility] Blood Venous blood specimen / Unknown Venipuncture / Unknown 05/09/2024 11:22 AM EDT 05/09/2024 11:22 AM EDT us Britt Parmar LIVESTOCK BUYER LAB BLOOD ORDERABLES Fi nal Result [facility] [address] [place] [address], * Comprehensive metabolic panel (05/09/2024 11:22 AM EDT) Pathologist [facility] Sodium 142 133 - 145 mmol/L LAB CHEMISTRY METHOD 05/09/2024 4:10 PM T [facility] Potassium 4.5 3.5 - 5.5 mmol/L LAB CHEMISTRY METHOD 05/09/2024 4:10 PM EDT [facility] Chloride 107 96 - 110 mmol/L LAB CHEMISTRY METHOD 05/09/2024 4:10 PM [facility] CO2 27 21 - 32 mmol/L LAB CHEMISTRY METHOD 05/09/2024 4:10 PM [facility] Anion Gap 8 3 - 11 LAB CHEMISTRY METHOD 05/09/2024 4:10 PM [facility] Glucose 85 70 - 100 mg/dL LAB CHEMISTRY METHOD 05/09/2024 4:10 PM [facility] BUN 20 5 - 25 mg/dL LAB CHEMISTRY METHOD 05/09/2024 4:10 PM [facility] Creatinine 0.78 0.50 - 1.10 mg/dL LAB CHEMISTRY METHOD 05/09/2024 4:10 PM [facility] eGFR 81 >=60 mL/min/1. 73m2 LAB CHEMISTRY METHOD 05/09/2024 4:10 PM [facility] Comment:Calculation based on the Chronic Kidney Disease Epidemiology Collaboration (CKD-EPI) equation refit without adjustment for race. BUN/Creatinine Ratio 25.6 LAB CHEMISTRY METHOD 05/09/2024 4:10 PM [facility] Calcium 10.3 8.5 - 10.5 mg/dL LAB CHEMISTRY METHOD 05/09/2024 4:10 PM [facility] AST (SGOT) 13 10 - 42 unit/L LAB CHEMISTRY METHOD 05/09/2024 4:10 PM [facility] ALT (SGPT) 20 10 - 60 unit/L LAB CHEMISTRY METHOD 05/09/2024 4:10 PM [facility] Alkaline Phosphatase 79 42 - 121 unit/L LAB CHEMISTRY METHOD 05/09/2024 4:10 PM [facility] Total Protein 7.2 6.0 - 8.0 g/dL LAB CHEMISTRY METHOD 05/09/2024 4:10 PM [facility] Albumin 4.1 3.2 - 5.0 g/dL LAB CHEMISTRY METHOD 05/09/2024 4:10 PM EDT [facility] Total Bilirubin 0.7 0.0 - 1.4 mg/dL LAB CHEMISTRY METHOD 05/09/2024 4:10 PM EDT [facility] Blood Venous blood specimen / Unknown Venipuncture / Unknown 05/09/2024 11:22 AM EDT 05/09/2024 11:22 AM EDT us Britt Parmar NP LAB BLOOD ORDERABLES Fi nal Result [facility] ([facility]) [facility] [address] [place] [address], from Last 3 Months or Most Recently Relevant to Health Maintenance Insurance MEDICARE [facility] Care Teams Court Bailiff Relationship Specialty Start Date End Date Britt Parmar NP [address] [place] [address] [place] [phone] [facility] - General 07/08/23
--- OUTSIDE RECORDS SUMMARY | 2024-09-12 11:54 | XMS_ITS | Clinical Summary ---
Author Organization [facility] Address [address] [facility] [address] [place] [address] Phone Care Team Providers Care Orthotist/Prosthetist Name Role Phone Heron Deleon DO Primary Care Provider [phone] Allergies Active Allergy Reactions Criticality Noted Date [...] Encounters Date Type Department Care Team Description 09/12/2024 11:15 AM EDT Office Visit [facility] [address] [facility], [address] [place] [address] Maxi Andrew MD Arrived 09/12/2024 8:48 AM EDT Hospital Encounter [facility] Imaging - Diagnostic Radiology, [facility] [address] [place] [address] Martha Cleary CNP Arrived 09/06/2024 Orders Only [facility] [address] [facility], [facility] [address] [place] [address] Sil Reis Left hip pain (Primary Dx) 07/31/2024 Orders Only [facility] [address] [facility] [place] [address] Sil Reis Aftercare following joint replacement surgery (Primary Dx) 06/13/2024 11:45 AM EDT Office Visit [facility] [address] [facility], [facility] [address] [place] [address] Maxi Andrew MD Aftercare following left knee joint replacement surgery (Primary Dx) 06/13/2024 10:39 AM EDT - 06/13/2024 11:59 PM EDT Hospital Encounter [facility] Imaging - Diagnostic Radiology, [facility] [address] [place] [address] Martha Cleary CNP Discharge Disposition: Home or Self Care from Last 3 Months Social History Tobacco [...] EST Inhaled Oxygen Concentration - - Weight 73.2 kg (161 lb 6.4 oz) 09/12/2024 11:26 AM EDT Height 152.4 cm (5') 03/09/2024 4:09 PM EST Body Mass Index 31.52 03/09/2024 4:09 PM EST Plan of Treatment Health Maintenance Due Date Last Done Comments Adult Td,Tdap Booster 1953 DEPRESSION SCREENING 1965 HEPATITIS C SCREENING 1971 COLOGUARD 1998 COLONOSCOPY 1998 COLORECTAL CANCER SCREENING 1998 FIT TEST 1998 FOBT 1998 SIGMOIDOSCOPY 1998 VIRTUAL COLONOSCOPY 1998 PNEUMOCOCCAL VACCINES (50+ years) (1 of 1 - PCV) 2003 ZOSTER VACCINES (1 of 2) 2003 COVID-19 VACCINE ( season) 2024 10/25/2023, 11/17/2022, 06/29/2022, Additional history exists TSH LEVEL 05/09/2025 05/09/2024 MAMMOGRAM 08/07/2026 08/07/2024, 08/07/2024 LIPID PANEL 05/09/2029 05/09/2024 RSV VACCINE Completed 02/01/2023 SMOKING STATUS SCREENING (Once After 26 Yrs) Completed 03/09/2024 OSTEOPOROSIS SCREENING INITIAL (ONE-TIME) Completed 08/07/2024 HEPATITIS A VACCINES Aged Out No long [...] this topic Medical Devices Implanted Type Area Labor Supervisor Device Identifier Shelf Expiration Date Model / Serial / Lot Ltka Total Stabilizer Tibial Insert Implanted:Qty: 1 on 03/09/2024 by Maxi Andrew MD at [facility] Left: Knee GUNNAR 10/09/2025 [id number] / / [id number] Description:The implant type , laterality (when applicable), size, and expiration date have been visually and verbally confirmed by the Surgeon, Circulating RN and Scrub Personnel. Procedures Procedure Name Priority Date/Time Associated Diagnosis Comments XR HIP 2 VW LEFT PLUS PELVIS Routine 09/12/2024 9:08 AM EDT Left hip pain Procedure Note - Trevin Lam MD / Giovanni Severino MD - 09/12/2024 9:08 AM EDTThis note is in progress. XR KNEE 3 VIEW (LEFT), XR HIP 2 VW LEFT PLUS PELVIS Referring clinician's provided indication for this examination in [facility]:Knee replacement, asymptomatic, follow up COMPARISON: XR KNEE 3 VIEW (LEFT) FINDINGS: Left knee: Unchanged alignment of the revision constrained left total kneearthroplasty. No periprosthetic fracture or lucency. Similar soft tissuemineralization about the knee. No knee joint effusion. Frontal evaluationthe right knee demonstrates degenerative change with joint space loss inthe medial compartment. Left hip: No displaced fracture. Degenerative changes of the bilateralsacroiliac joints and pubic symphysis. Frontal evaluation of the right hipdemonstrates degenerative changes. Severe degenerative changes of the lefthip with joint space loss and osseous remodeling. Osseousdemineralization. IMPRESSION: Left knee total arthroplasty unchanged in alignment without evidence ofhardware complication. Severe degenerative changes of the left hip. No fracture. RECOMMENDATIONS: DEXA scan. XR KNEE 3 VIEW (LEFT) Routine 09/12/2024 9:08 AM EDT Aftercare following joint replacement surgery Procedure Note - Trevin Lam MD / Giovanni Severino MD - 09/12/2024 9:08 AM EDTThis note is in progress. XR KNEE 3 VIEW (LEFT), XR HIP 2 VW LEFT PLUS PELVIS Referring clinician's provided indication for this examination in [facility]:Knee replacement, asymptomatic, follow up COMPARISON: XR KNEE 3 VIEW (LEFT) FINDINGS: Left knee: Unchanged alignment of the revision constrained left total kneearthroplasty. No periprosthetic fracture or lucency. Similar soft tissuemineralization about the knee. No knee joint effusion. Frontal evaluationthe right knee demonstrates degenerative change with joint space loss inthe medial compartment. Left hip: No displaced fracture. Degenerative changes of the bilateralsacroiliac joints and pubic symphysis. Frontal evaluation of the right hipdemonstrates degenerative changes. Severe degenerative changes of the lefthip with joint space loss and osseous remodeling. Osseousdemineralization. IMPRESSION: Left knee total arthroplasty unchanged in alignment without evidence ofhardware complication. Severe degenerative changes of the left hip. No fracture. RECOMMENDATIONS: DEXA scan. XR KNEE 3 VIEW (LEFT) Routine 06/13/2024 [...] clinician's provided indication for this examination in [facility]: Knee replacement, asymptomatic, follow up COMPARISON: XR [...] clinician's provided indication for this examination in [facility]:Knee replacement, asymptomatic, follow up COMPARISON: XR BONE LENGTH STUDY FINDINGS: Left Knee: Redemonstration of revision constrained LEFT total kneearthroplasty. Hardware is intact and in anatomic position. Noperiprosthetic lucency or fracture. No effusion. Frontal evaluation of the right knee demonstrates severe degenerativechange. IMPRESSION: Revision LEFT total knee arthroplasty Martha Cleary CASINO CASHIER MANAGER IMG XR LOWER EXTRE MITY Final Result from Last 3 Months Insurance MEDICARE PART A & B [facility] MEDICARE SUPPLEMENT MEDICARE PART A & B [facility] MEDICARE SUPPLEMENT [employer] [id number] MEDICARE PART A & B [employer] MEDICARE SUPPLEMENT MEDICARE PART A & B [employer] MEDICARE SUPPLEMENT MEDICARE PART A & B [employer] MED[employer]ARE SUPPLEMENT MEDICARE PART A & B [employer] MED[employer]ARE SUPPLEMENT Care Teams Orthotist/Prosthetist Relationship Specialty Start Date End Date Heron Deleon DO [address] [place] [address] [address] [place] [address] PCP - General Internal Medicine 09/16/23 Additional Source Comments The information contained in this document represents components of the legal health record. It is not the complete legal health record.[facility]
== END 2024-09-11 10:53 | disposition home or self-care (01) ==
LOC: HO.HOSX 10:52
PROVIDERS: Visit Provider Physician Assistant
DX: M16.12 Unilateral primary osteoarthritis, left hip (principal); M25.552 Pain in left hip; Z96.652 Presence of left artificial knee joint; Z79.899 Other long term (current) drug therapy
CPT/HCPCS: 73502; 99202

== ENCOUNTER 2024-09-17 10:25 | Outpatient (AMB) | payer MEDICARE, OTHER, SELFPAY ==
[2024-09-17 10:50] VITALS: BMI 32.2
--- NOTE | 2024-09-17 10:50 | A.OFFVIS_ITS ---
Vital Signs 09/17/24 10:50 Height 5 ft Weight 165 lb BMI 32.2 Intake Visit Reasons: OV - Discuss Left STEFANIA Intake Note: Katie is a 69 year old female who presents today for a follow up of her Left Hip OA. She was last seen with Chana who referred her to Discuss surgery. History of Left TKA with [facility] in 2020 and revision in [place] in February of 2024. Patient reports that she has had ongoing pain in the right leg the pain starts in the hip and radiates down the leg. She struggles to fully weight bear on the left leg due to this pain. Allergies Sulfa (Sulfonamide Antibiotics) Allergy (Verified 09/17/24 10:53) Stomach Upset HPI HPI OV - Discuss Left STEFANIA: Details: Katie is a 69 year old female who presents today for a follow up of her Left Hip OA. She was last seen with Chana who referred her to Discuss surgery. History of Left TKA with [facility] in 2020 and revision in [place] in February of 2024. Patient reports that she has had ongoing pain in the right leg the pain starts in the hip and radiates down the knee. She struggles to fully weight bear on the left leg due to this pain and ambulates with a walker. [facility] Surgical History History of total left knee replacement (TKR) History of revision of total knee arthroplasty Social History Alcohol intake: never Patient Tobacco Use Status: Never used Tobacco Current occupational status: retired Current occupation: right hand dominant Physical Exam Vital Signs: BMI result Body Mass Index 32.2 Extrem Other: Trendelenburg gait on the left with positive impingement sign on the left. Positive Stinchfield. On the left her left knee incision is clean dry intact she has full range of motion of her left knee. She has dorsalis pedis +2 pulse and she is firing her EHL/tib ant/gastrocs. Skin intact to light touch. Results Reviewed Results Reviewed: I personally reviewed relevant radiographs. Severe left hip osteoarthritis with proximal subluxation and limb shortening Moderate right hip osteoarthritis without subluxation Assessment & Plan Assessment & Plan (1) Osteoarthritis of left hip: Code(s): M16.12 - Unilateral primary osteoarthritis, left hip Category: Medical Plan: This is a 69-year-old woman with severe osteoarthritis of the left hip. This is been ongoing for 4 years and she underwent a left knee replacement in the interim. She has had injections in the left hip were tore only briefly helpful. She is unable to bend over. She is unable to get through her activities of daily living without discomfort. She is unable to walk without an assistive device. She feels the quality of her life is diminished. I reviewed her radiographs with her and her clinical exam. In my opinion she is suffering from severe osteoarthritis of the left hip and I recommend a left hip replacement. I discussed the details of the procedure with her. I discussed the risks, benefits and alternatives. I discussed nonoperative treatment and the potential risks and benefits associated with that. I explained the risks of operative intervention. I delineated the risks into surgical and medical. The surgical risks were discussed and included, but were not limited to, the risk of infection, stiffness, injury to artery/nerve/soft tissues, I also discussed the medical risks such as blood clots, pulmonary embolism some, urinary tract infection, stroke, organ failure. She expressed understanding. We will begin the preoperative clearance process. She has a excellent candidate for hip replacement surgery. Coding Level of Care Code Est Pt Level 4 (77047) Diagnoses Osteoarthritis of left hip M16.12
--- OUTSIDE RECORDS SUMMARY | 2024-09-17 11:07 | XMS_ITS | Clinical Summary ---
Author Organization [address] [facility] Address [address] [place] [address] Phone Care Team Providers Care Women Specialist Name Role Phone Britt Parmar NP Primary Care Provider Encounters Date Type Department Care Team Description 08/07/2024 8:59 AM EDT - 08/07/2024 11:59 PM EDT [facility] [address] [phone] Encounter for screening mammogram for malignant neoplasm of breast Discharge Disposition: Home or Self Care 08/07/2024 8:58 AM EDT - 08/07/2024 11:59 PM EDT Hospital Encounter [facility] [address] [place] [phone] Asymptomatic menopausal state Discharge Disposition: Home or [...] probability of hip fracture of 4.6%. Code 70291 -------- FINAL REPORT -------- Dictated By: Kenny Jorgensen Dictated Date: 08/07/2024 09:53 ET Assigned Physician: Kenny Jorgensen Reviewed and Electronically Signed By: Kenny Jorgensen Signed Date: 08/07/2024 09:55 ET Workstation ID: [id number] Transcribed By: Self Edit Transcribed Date: 08/07/2024 [...] density of the femurs bilaterally is 0.666 gm/zo9pihru is 66% of that of young normals [...] probability of hip fracture of 4.6%. Code 82066 -------- FINAL REPORT -------- Dictated By: Kenny Jorgensen Dictated Date: 08/07/2024 09:53 ET Assigned Physician: Kenny Jorgensen Reviewed and Electronically Signed By: Kenny Jorgensen Signed Date: 08/07/2024 09:55 ET Workstation ID: [id number] Transcribed By: Self Edit Transcribed Date: 08/07/2024 09:53 ET Heron Deleon DO [facility] DXA PROCEDURES Final Resu lt * MG Mammo Digital Screening w Benjamin bilat (08/07/2024 9:16 AM EDT) Anatomical Region Laterality Modality Breast Bilateral Mammography 08/07/2024 2:34 PM EDT Impressions 08/07/2024 2:35 PM EDT No evidence of breast malignancy. BI-RADS CATEGORY: 1 - NEGATIVE RECOMMENDATION: Screening bilateral mammogram is recommended in 1 year. Mammo Location: [facility], [address] [place] [address], [id number], . -------- FINAL REPORT -------- Dictated By: Molly Martell Dictated Date: 08/07/2024 14:34 ET Assigned Physician: Molly Martell Reviewed and Electronically Signed By: Molly Martell Signed Date: 08/07/2024 14:35 ET Workstation ID: [id number] Transcribed By: Self Edit Transcribed Date: 08/07/2024 [...] year. Mammo Location: [facility], [address] [place] [address], [id number], . -------- FINAL REPORT -------- Dictated By: Molly Martell Dictated Date: 08/07/2024 14:34 ET Assigned Physician: Molly Martell Reviewed and Electronically Signed By: Molly Martell Signed Date: 08/07/2024 14:35 ET Workstation ID: [id number] Transcribed By: Self Edit Transcribed Date: 08/07/2024 14:34 ET us Heron Deleon DO IMG BI PROCEDURES Final Resul t * Lipid panel with reflex to direct LDL (05/09/2024 11:22 AM EDT) Cholesterol 184 0 - 200 mg/dL LAB CHEMISTRY METHOD 05/09/2024 4:10 PM EDT [facility] Triglycerides 83 0 - 150 mg/dL LAB CHEMISTRY METHOD 05/09/2024 4:10 PM EDT [facility] HDL 80 >=40 mg/dL LAB CHEMISTRY METHOD 05/09/2024 4:10 PM EDT [facility] LDL Calculated 87 0 - 100 mg/dL LAB CHEMISTRY METHOD 05/09/2024 4:10 PM EDT [facility] VLDL Cholesterol Armin 16.6 mg/dL LAB CHEMISTRY METHOD 05/09/2024 4:10 PM EDT [facility] Non HDL Chol. (LDL+VLDL) 104 <145 mg/dL LAB CHEMISTRY METHOD 05/09/2024 4:10 PM EDT [facility] Chol/HDL Ratio 2.3 0.0 - 4.4 LAB CHEMISTRY METHOD 05/09/2024 4:10 PM EDT [facility] Blood Venous blood specimen / Unknown Venipuncture / Unknown 05/09/2024 11:22 AM EDT 05/09/2024 11:22 AM EDT us Britt Parmar JIGMAKER LAB BLOOD ORDERABLES Fi nal Result [facility] [address] [place] [address], * Comprehensive metabolic panel (05/09/2024 11:22 AM EDT) Pathologist [facility] Sodium 142 133 - 145 mmol/L LAB CHEMISTRY METHOD 05/09/2024 4:10 PM T [facility] Potassium 4.5 3.5 - 5.5 mmol/L LAB CHEMISTRY METHOD 05/09/2024 4:10 PM EDT [facility] Chloride 107 96 - 110 mmol/L LAB CHEMISTRY METHOD 05/09/2024 4:10 PM [facility] CO2 27 21 - 32 mmol/L LAB CHEMISTRY METHOD 05/09/2024 4:10 PM [facility] Anion Gap 8 3 - 11 LAB CHEMISTRY METHOD 05/09/2024 4:10 PM [facility] Glucose 85 70 - 100 mg/dL LAB CHEMISTRY METHOD 05/09/2024 4:10 PM [facility] BUN 20 5 - 25 mg/dL LAB CHEMISTRY METHOD 05/09/2024 4:10 PM [facility] Creatinine 0.78 0.50 - 1.10 mg/dL LAB CHEMISTRY METHOD 05/09/2024 4:10 PM [facility] eGFR 81 >=60 mL/min/1. 73m2 LAB CHEMISTRY METHOD 05/09/2024 4:10 PM [facility] Comment:Calculation based on the Chronic Kidney Disease Epidemiology Collaboration (CKD-EPI) equation refit without adjustment for race. BUN/Creatinine Ratio 25.6 LAB CHEMISTRY METHOD 05/09/2024 4:10 PM [facility] Calcium 10.3 8.5 - 10.5 mg/dL LAB CHEMISTRY METHOD 05/09/2024 4:10 PM [facility] AST (SGOT) 13 10 - 42 unit/L LAB CHEMISTRY METHOD 05/09/2024 4:10 PM [facility] ALT (SGPT) 20 10 - 60 unit/L LAB CHEMISTRY METHOD 05/09/2024 4:10 PM [facility] Alkaline Phosphatase 79 42 - 121 unit/L LAB CHEMISTRY METHOD 05/09/2024 4:10 PM [facility] Total Protein 7.2 6.0 - 8.0 g/dL LAB CHEMISTRY METHOD 05/09/2024 4:10 PM [facility] Albumin 4.1 3.2 - 5.0 g/dL LAB CHEMISTRY METHOD 05/09/2024 4:10 PM EDT [facility] Total Bilirubin 0.7 0.0 - 1.4 mg/dL LAB CHEMISTRY METHOD 05/09/2024 4:10 PM EDT [facility] Blood Venous blood specimen / Unknown Venipuncture / Unknown 05/09/2024 11:22 AM EDT 05/09/2024 11:22 AM EDT us Britt Parmar NP LAB BLOOD ORDERABLES Fi nal Result [facility] [address] [place] [address], from Last 3 Months or Most Recently Relevant to Health Maintenance Insurance MEDICARE [facility] Care Teams Women Specialist Relationship Specialty Start Date End Date Britt Parmar NP [address] [place] [address] [place] [phone] [facility] - General 07/08/23
--- OUTSIDE RECORDS SUMMARY | 2024-09-17 11:07 | XMS_ITS | Encounter Summary ---
Author Organization [facility] Address [address] [place] [address] Phone Care Team Providers Care Tabulating Supervisor Name Role Phone Heron Deleon DO Primary Care Provider [phone] Encounter Details Date Type Department Care Team (Late st Contact Info) Description 09/14/2024 Orders Only [facility] [address] [place] [address] Michel Gamez MD, PhD [address] [place] [address] Social History Tobacco Use Types Packs/Day Years [...] AM EDT documented as of this encounter Plan of Treatment Scheduled Orders Name Type Priority Associated Diagnoses Orde r Schedule [employer] Blood Draw Lab Routine Expected: 2024, Expires: 03/17/2025 documented as of this encounter Visit Diagnoses Not on filedocumented in this encounter Care Teams Tabulating Supervisor Relationship Specialty Start Date End Date Heron Deleon DO [address] [place] [id number] PCP - General Internal Medicine 09/16/23 documented as of this encounter Additional Source Comments The information contained in this document represents components of the legal health record. It is not the complete legal health record.[facility]
== END 2024-09-17 11:54 | disposition home or self-care (01) ==
LOC: HO.HOS 10:25
PROVIDERS: Visit Provider Orthopaedic Surgery
DX: M16.12 Unilateral primary osteoarthritis, left hip (principal)
CPT/HCPCS: 99214

== ENCOUNTER → 2024-09-17 10:25 | Outpatient (BNVA) | payer MEDICARE, OTHER, SELFPAY | PROVIDERS: Visit Provider Orthopaedic Surgery | DX: M16.12 Unilateral primary osteoarthritis, left hip (principal) | CPT/HCPCS: 99212 ==

== ENCOUNTER → 2024-11-20 10:36 | Outpatient (BNVA) | payer MEDICARE, OTHER, SELFPAY | PROVIDERS: PCP Internal Medicine | DX: Z01.818 Encounter for other preprocedural examination (principal) ==

== ENCOUNTER 2024-11-29 14:11 | Outpatient (AMB) | payer MEDICARE, OTHER, SELFPAY ==
--- NOTE | 2024-11-28 21:42 | MHC.OFFVIS ---
Vital Signs 11/29/24 14:30 Height 5 ft 5 in Weight 170 lb BMI 28.3 Intake Visit Reasons: Pre-Op: L STEFANIA w/NE 12/04/24 Intake Note: Katie is a 69 year old female who presents today for a preoperative to discuss upcoming left total hip arthroplasty that is scheduled with Dr. Silver on 12/04/24. Pain management agreement reviewed and signed. Allergies Sulfa (Sulfonamide Antibiotics) Allergy (Verified 11/29/24 14:33) Stomach Upset Medication List - Last Reconciled 11/29/24 by Krishna Segovia PA-C acetaminophen 1,000 mg PO Q6H PRN calcium carbonate 600 mg PO BID [Folding Front Wheeled walker Duration: 99 days] ibuprofen 400 mg PO Q6H PRN levothyroxine 75 mcg PO DAILY rosuvastatin 5 mg PO DAILY HPI Comments Details: Ms Hernandez presents to the office today for Orthopedic Pre op clearance. She is scheduled for a left total hip arthroplasty with Dr Silver on 12/04/24. She has a history of Left TKA with [facility] in 2020 and revision in [place] in February of 2024. Patient reports that she has had ongoing pain in the left leg after the revision. She states the pain starts in the hip and radiates down the knee. She struggles to fully weight bear on the left leg due to this pain and ambulates with a walker. She has had injections in the left hip which were briefly helpful. She has multiple rounds of PT. She is unable to bend over. She is unable to get through her activities of daily living without discomfort. She is unable to walk without an assistive device. She feels the quality of her life is diminished. The patient lives with spouse in a two level home with four steps to enter. Patient was seen by Britt Sher nurse practitioner on 10/25/2024 for preop clearance. There are no medical contraindications to proposed surgery. [facility] Medical History (Updated 11/16/24 @ 10:15 by Emmanuelle Stevens RN) Osteoarthritis Thyroid disease Surgical History (Updated 11/16/24 @ 10:23 by Emmanuelle Stevens RN) Hx of bilateral cataract extraction Hx of ovarian cystectomy H/O colonoscopy History of total left knee replacement (TKR) History of revision of total knee arthroplasty Social History (Reviewed 09/17/24 @ 10:50 by VENESSA Donaldson Are you a primary animal care specialist to a significant other at home: No Do you presently have visiting nurse or other home services: No Alcohol intake: never Patient Tobacco Use Status: Never used Tobacco Current occupational status: retired Current occupation: right hand dominant Review of Systems Const All systems reviewed & are unremarkable except as noted in HPI and below Physical Exam Vital Signs: BMI result Body Mass Index 28.3 Const General: cooperative, healthy appearing, comfortable, no acute distress, well developed and alert Orientation/consciousness: patient oriented x3 HEENT Head: Yes normal to inspection, Yes normocephalic and Yes atraumatic Eyes General: appearance normal, both eyes and all related structures Neck Neck: Yes normal visual inspection and Yes no lymphadenopathy Resp Effort & Inspection: normal respiratory effort and able to speak in complete sentences Cardio Rate: regular rate Peripheral pulses: Peripheral pulses 2+ throughout GI Inspection: Yes normal to inspection Palpation (GI): Soft to palpation Skin General skin exam: no rashes or lesions noted Neuro General: patient oriented x3 Extrem Other: Left hip skin intact, no open wounds or abraisons. Pain with ROM of the hip. She has dorsalis pedis +2 pulse and she is firing her EHL/tib ant/gastrocs. No evidence of venous stasis Psych Appearance: grossly normal Mental Status: mental status grossly normal Assessment & Plan Assessment & Plan (1) Osteoarthritis of left hip: Code(s): M16.12 - Unilateral primary osteoarthritis, left hip Category: Medical Plan: Has exhausted all conservative measures consisting of lifestyle modifications, physical therapy, analgesics, corticosteroid injections and use of assisted devices and continues to have significant limitations in daily activities along with decreased quality of life. Given the patient's desire to improve their quality of life, surgical intervention consisting of joint replacement surgery is recommended at this time.? We discussed the procedure in detail today; which includes pre op preparation with labs and reviewing patients medication regimen prior to surgery. She was sent to the lab to obtain CBC/BMP and type and screen. I discussed at length the post op course which includes physical therapy services in the hospital along with the discharge routine and the patients plan upon discharge. Patient would like to be discharged home with VNA services postoperatively. I explained to the patient, once they are DC home, they will receive VNA services which will include PT 2-3x per week. We also discussed their choice for outpatient PT once they are discharged from home PT. Patient [facility] appointment at [facility] [place]. I did give her a paper copy of the order which she will take to her 1st appointment. Post op DVT ppx was also discussed and the considering the patient does not have a history of DVT/PE or cancer we will give her aspirin 325 mg p.o. b.i.d. for DVT prophylaxis x6 weeks. I reviewed with the patient their post op pain medication regimen along with the detailed wean program. The patient did express understanding of this and agreed to the narcotic policy. Lastly, I discussed with the patient the risks to the procedure. Risks including but not limited to infection, injury to surrounding nerves, tissue , bone, small and large vessels, stiffness, aseptic loosening, fracture, dislocation, amputation, DVT/PE along with intraoperative complications including but not limited to . The patient does express understanding, all questions were answered and the patient would like to proceed? with left total hip arthroplasty with Dr. Silver. Consents were signed and dated while in the office today.? Post-Operative Recovery Notes: DVT ppx : [facility] DC plan: Home with VNA Physical Therapy: [facility]--patient was given an order Walker obtained Orders: Orders PT Evaluation and Treatment 11/29/24 Z96.642 - Presence of left artificial hip joint Basic Metabolic Panel 11/29/24 Z01.818 - Encounter for other preprocedural examination Complete Blood Count Auto Diff 11/29/24 Z01.818 - Encounter for other preprocedural examination Coding Level of Care Code Est Pt Level 3 (15923) Complex EM visit Add On G2211 Diagnoses Osteoarthritis of left hip M16.12
[2024-11-29 14:30] VITALS: BMI 28.3
--- OUTSIDE RECORDS SUMMARY | 2024-11-29 17:56 | XMS_ITS | Data Portability ---
Author Organization [facility], [facility] Address [address] [place] [address] Care Team Providers Care Mender [employer]s Name Role Phone CHATO BAXTER Primary Care [...] of continued conservative management versus surgical management. [email or web address] Not available 04/23/2024 16:47:25 08/02/2024 08/02/2024 I [...] conservative management versus surgical management. Not available 08/02/2024 07:53:30 11/05/2024 11/05/2024 I [...] of continued conservative management versus surgical management. [email or web address] Not available 11/05/2024 08:03:38 Plan of Treatment [...] knee pain room 218 [email or web address] [facility], [address] [facility], [facility] [address], [place], [address], 05/07/2024 15:45:56 Medication Orders None recorded . Patient TargetsNo targets recorded. Patient InstructionsNo instructions recorded. Reason for Referral None Reported. Results Created Date Observation Date Name Description Value Unit Range Abnormal Flag Note LastModifiedBy Organization Detail LastModifiedTime 04/24/1904/23/2024 XR, knee, 4 or more view http:/ [email or web address] ?Encry pted=s hAaTro YD8dLq bEUv6g %2BXZw aYqtaq 0bqfl% 2Fg9IQ a4ajBk vP9nXo QUaueC m3YtLR FvZl[address] HZtai3 9p2543 AC0KqY n2FV6K lKiQtr MwF INTERFACE [facility] Office [address] [facility] [address], [place], [address], 04/23/2024 16:12:24 04/24/19 25 04/23/2024 XR, knee, 4 or more view http:/ [email or web address] ?Encry pted=s hAaTro YD8dLq bEUv6g %2BXZw aYqtaq 0bqfl% 2Fg9IQ a4ajBk vP9nXo QUaueC m3YtLR FvZl10 [address] 7j7652 AC0KqY n2FV6K lKiQtr MwF INTERFACE [facility] [address] [facility] [address], [place], [address], 04/23/2024 16:12:26 Result Notes Documentation Provider Name and Address Organization Details Recorded Time Xr, Knee, 4 Or More View : [email or web address]? Encrypted=ebMePgySF8oKuvN Uv6g%8MRFkkMwfuq9yygm%2Fg 1HOf0xcFkhV8wDpPEtyvJk6Yb DAFwZdjWKG4nGyBLtbb41e241 7KG5HdFo5GW8AuGaGkmAhQ Not Available [facility] 04/23/2024 16:12: 24 Xr, Knee, 4 Or More View : [email or web address] Encrypted=fdJpMpsMB4sLyhB Uv6g%8OQVunUcibh6cqml%2Fg 0FOc9uiRrdE4nUsLCsvpJl8Uh CRPuQniMFC9jYkKStfd98b872 8AX7AyWv8HR0DzNsVwpIwP Not Available [facility] 04/23/2024 16:12: 26 Problems Name Problem SNOMED Code Status Onset Date Resolution Date Notes Provider Name and Address Organization Details Recorded Time No complaint s 955685765 Active Status: 'I'; Not Available [facility] 4 09:26:48 Idiopathi c osteoarth ritis 686992685 Active 2016 Problem Code: M17.0; Problem Code Type: ICD-10; Status: 'A'; Not Available [facility] 4 11:27:38 Pain of right knee joint 394883777260 100 Active 2016 Problem Code: M25.561; Problem Code Type: ICD-10; Status: 'A'; ELSA navarrete [place] - [facility] 15:58:55 History of major orthopedi c surgery 621011644 Active 2021 Status: 'A'; Not Available [facility] 4 11:27:38 Osteoarth ritis of right knee joint 228375631891 100 Active 2023 Kalyani Willoughby PA-C [address], [place], [address] , [facility] 4 08:38:20 Problem Notes None recorded. Procedures Surgical History Date Name Laterality Status Provider Name and Address Organization Details Recorded Time 5 JZKNEE INJ completed Ezequiel Prater PA-C [address], [place], [address], [facility] 11/05/2024 08:03:41 5 JZKNEE INJ completed Ezequiel Prater PA-C [address], [place], [address], [facility]3] [facility] 08/02/2024 07:53:18 5 JZKNEE INJ completed Ezequiel Prater PA-C [address], [place], [address], [facility] 04/23/2024 11:00:43 5 Orthopedic Surgery completed KAYLIA L'HEUREUX [facility] 04/23/2024 15:57:49 4 Sports Knee 4&1 completed Kalyani Willoughby PA-C [address], [place], [address], [facility] 10/26/2023 12:03:03 4 Sports Knee 4&1 completed Kalyani Willoughby PA-C [address], [place], [address], [facility] 07/28/2023 08:38:15 1 Knee Surgery completed TOMASZ Chatterjee [facility] 10/27/2023 09:38:46 01/24/192 5 Knee Surgery completed KAYLIA L'HEUREUX [place] - [facility] 04/23/2024 15:57:49 Imaging Results None recorded. Procedure Notes None recorded. Medical Equipment None Reported. Allergies Allergen ID Allergen Name Allergen Category Reaction Reaction Severity Criticality Documentation Date Start Date Code Code System Note Provider Name and Address Organization Details Recorded Time 98729 sulfur medicatio n Not available Not available Not available 04/18/20232022 69385 RxNorm Not Available [facility] 12:44:35 Medications Name Sig Start Date Stop [...] Updated DateTime 04/23/2024 149.86 cm 34.3 kg/m2 80574.7 g ELSA L'HEURJIM [facility] 04/23/2024 15:58:02 Date Recorded Body height Body mass index (BMI) Body weight Provider Name and Address Organization Details Last Updated DateTime 07/28/2023 149.86 cm 34.3 kg/m2 19781.7 g TOMASZ Chatterjee [facility] 07/28/2023 10:28:33 Date Recorded Body height Body mass index (BMI) Body weight Provider Name and Address Organization Details Last Updated DateTime 08/02/2024 149.86 cm 34.3 kg/m2 86318.7 g SCOTTIE OCASIO [facility] 08/02/2024 10:38:17 Date Recorded Body height Body mass index (BMI) Body weight Provider Name and Address Organization Details Last Updated DateTime 10/27/2023 149.86 cm 34.3 kg/m2 17895.7 g TOMASZ PANKAJ Chatterjee [facility] 10/27/2023 09:39:09 Date Recorded Body height Body mass index (BMI) Body weight Provider Name and Address Organization Details Last Updated DateTime 11/05/2024 149.86 cm 34.3 kg/m2 11432.7 g SANJUANITA Knottemir [facility] 11/05/2024 10:06:53 Social History Question Answer Notes LastModified by [employer] ion Details LastModified Time Tobacco Smoking Status Never Smoker TOMASZNAOMY navarrete [facility] 07/28/2023 10:28:45 Which Of Your Hands Is Dominant? Right Information not available 07/28/2023 What Is Your Relationship Status? Information not available 08/02/2024 Sex: Unknown Functional Status Question Answer Note LastModified by [employer] ion Details LastModified Time How many times [...] History Nothing Reported. Medical History Condition Response Coronary Artery Disease N Anxiety/Depression N Emphysema N COPD N Pacemaker N Vascular Disease N Heart Trouble N Gastrointestinal Disease N Autoimmune disease N Orthotics N Arthritis Y Blood Clot N Acid Reflux (GERD) N Cancer N Stroke N Circulation Problems N Rheumatoid Arthritis N Arrhythmia N Headaches N Fibromyalgia N Allergies/Hayfever N Breathing or lung disorders N Nerve Disorders N Thyroid Problems Y Kidney/Bladder Problems N Anemia N Heart Attack (CA) N Cholesterol Y Diabetes N Bleeding Disorder N Seizures/Epilepsy N AIDS/HIV N Congestive Heart Failure (CHF) N Asthma N Peripheral Vascular Disease N Sleep Apnea N Hepatitis N Heart Disease N Pulmonary Embolism N Hypertension N Osteoporosis N Gynecological HistoryNo gynecological history recorded. Obstetrics History GPAL:G 0 P 0 0 0 0 Past Encounters Encounter ID Performer Location Encounter Start Date Encounter Closed Date Diagnosis/Indication Diagnosis SNOMED-CT Code Diagnosis ICD10 Code Diagnosis IMO Codes Diagnosis Note [id number] Kalyani Willoughby PA-C [facility] [address] [place] [address] 07/28/2023 10:05:17 08/17/2023 14:32:15 Osteoarthritis of right knee joint 9540764624 86225 M17.11 History of total knee arthroplasty 4919000524 105 Z96.607 [id number] Kalyani Willoughby PA-C [place] [address] [place] [address] 10/27/2023 09:31:14 11/09/2023 10:31:16 Osteoarthritis of right knee joint 8789174533 M17.11 History of total knee arthroplasty 5300785178 105 Z96.430 [id number] [facility] [place] [address] [place] [address] 04/23/2024 15:40:10 05/07/2024 15:45:55 Osteoarthritis of right knee joint 7749002519 75544 M17.11 3677100 Pain of ri ght knee joint 8864014805 54450 M25.[facility] [id number] Ezequiel Praetr PA-C [facility] [place] [address] [place] [place] [address] 08/02/2024 10:19:33 08/15/2024 08:35:08 Osteoarthritis of right knee joint 6074400879 M17.11 7422880 [id number] Ezequiel Prater PA-C [facility] [place] [address] [place] [place] [address] 11/05/2024 09:38:41 11/14/2024 09:47:53 Osteoarthritis of right knee joint 9887490248 92116 M17.11 9541657 Health Concerns Section Related Observation LastModified by Organization Detai ls LastModified Time None Recorded Concern Status LastModified by Organization Details LastModified Time None Recorded Advance Directives Directive None Recorded Payers Insurance Date Sequence Insurance Name Policy Number Policy Nunez Covered Member ID Nunez Member ID Guarantor Name 11/05/2024 1 [place]: [employer] Katie Hernandez [id number] Katie Hernandez 11/14/2024 2 [facility] [place]MN[place] [id number] 2 Katie Hernandez [id number] Katie Hernandez Notes Date Note Type Note Provider Name and Address Organization Details Recorded Time 07/28/2023 text/html I am seeing the patient today under the supervision of Dr. Duenas who was available but who did not see the patient. HPI:Patient presents today follow-up regarding their Right knee. Previous injection 04/22/23 in [place] gave good relief until recent. Xouu-hdc-gndpfvc medications are helping somewhat but not significantly. [...] going to seek a second opinion in [place], recommended she obtain all of her records prior to going. Follow up in 3 months for her right knee injection. All of their concerns were addressed and they understand and agree with the plan. Speech recognition cooking chef software was used to create portions of this document. An attempt at proofreading has been made to minimize errors. Please call for corrections. Kalyani Willoughby PA-C [address] [place] [address] [address], [place], [address], [facility] 07/28/2023 11:45:09 10/27/2023 text/html I am seeing the patient today under the supervision of Dr. Little who was available but who did not see the patient. HPI:Patient presents today follow-up regarding their Right knee. Previous injection 07/28/23 in [place] gave good relief until recent. Mayu-ebm-oxrhgrp medications are helping somewhat but not significantly. [...] She has a second opinon appointment at [facility] in December. Past family, medical, social [...] - patient is seeking second opinion in [place] Plan:Patient elected to proceed with repeat right knee cortisone injection today. Discussed utilizing her cane, low impact exercises and over the counter anti-inflammatories as needed. Regarding her left knee, we discussed a small percentage of patients who undergo joint replacement continue to have pain and are unhappy. She discussed she is going to seek a second opinion in [place], recommended she obtain all of her records prior to going. Follow up in 3 months for her right knee injection. All of their concerns were addressed and they understand and agree with the plan. Speech recognition cooking chef software was used to create portions of this document. An attempt at proofreading has been made to minimize errors. Please call for corrections. Kalyani Willoughby PA-C [address] [facility] [address], [place], [address], [facility] - [facility] 10/27/2023 10:04:20 OBGyn Episode No OBEpisode recorded.
== END 2024-11-29 15:31 | disposition home or self-care (01) ==
LOC: HO.HOS 14:11
PROVIDERS: PCP Internal Medicine; Visit Provider Physician Assistant
DX: M16.12 Unilateral primary osteoarthritis, left hip (principal)
CPT/HCPCS: 99024

== ENCOUNTER → 2024-11-29 14:11 | Outpatient (BNVA) | payer MEDICARE, OTHER, SELFPAY | PROVIDERS: PCP Internal Medicine; Visit Provider Physician Assistant | DX: Z01.818 Encounter for other preprocedural examination (principal); M16.12 Unilateral primary osteoarthritis, left hip; M25.562 Pain in left knee; Z96.652 Presence of left artificial knee joint | CPT/HCPCS: 99212 ==

== ENCOUNTER 2024-12-04 08:29 | Day surgery (SDC) | payer MEDICARE, OTHER, SELFPAY ==
--- OUTSIDE RECORDS SUMMARY | 2006-06-28 | XMS_ITS | Encounter Summary ---
Author Organization [facility] Address [address] [place] [address] Phone Care Team Providers Care Chargeback Analyst Name Role Phone Unavailable Primary Care Provider Unavailabl e Encounter Details Date Type Department Care Team ([facility] st Contact Info) Description 06/28/2006 Hospital Encounter [facility] IMG OUTSIDE IMG [address] [place] [address] Maxi Andrew MD [address] [facility] 3 [place] [address] [email or web address] Social History Tobacco Use Types Packs/Day [...] 03/09/2024 3:59 PM Isi Monge RN * [place] Suicide Severity Rating Scale (Screener/Recent Self-Report) Question [...] (No Interpretation) (06/28/2006 12:00 AM EDT) Narrative [facility] IMG INTERFACES - 12/28/2023 10:43 AM EST This study is for PACS storage only and not for interpretation. us Maxi Andrew MD IMG OUTSIDE IMAGING W/OU T INTERPRETATION Final Result [facility] IMG INTERFACES documented in this encounter Visit Diagnoses Not on filedocumented in this encounter Additional Source Comments The information contained in this document represents components of the legal health record. It is not the complete legal health record.[facility]
--- OUTSIDE RECORDS SUMMARY | 2024-11-09 14:28 | XMS_ITS | Clinical Summary ---
Author Organization [facility] Address [address] [place] [address] Phone Care Team Providers Care Alterations Tailor Name Role Phone Heron Deleon DO Primary Care Provider [phone] Allergies Active Allergy Reactions Criticality Noted Date [...] Encounters Date Type Department Care Team Description 09/14/2024 Orders Only [facility] [address] [place] [address] Michel Gamez MD, PhD 09/12/2024 11:15 AM EDT Office Visit [facility] [address] [facility], [address] [place] [address] Maxi Andrew MD S/P TKR (total knee replacement), right (Primary Dx); Primary osteoarthritis of left hip 09/12/2024 8:48 AM EDT - 09/12/2024 11:59 PM EDT Hospital Encounter [facility] Imaging - Diagnostic Radiology, [address] [place] [address] [place] [address] Martha Cleary CNP Discharge Disposition: Home or Self Care 09/06/2024 Orders Only [facility] [address] [facility], [facility] [address] [place] [address] Sil Reis Left hip pain (Primary Dx) from Last 3 Months Social History Tobacco [...] 2003 ZOSTER VACCINES (1 of 2) 2003 INFLUENZA VACCINE (#1) 2024 , 04/05/2023, 11/19/2021, Additional history exists COVID-19 VACCINE ( season) 2024 10/25/2023, 11/17/2022, [...] this topic Medical Devices Implanted Type Area Assistant Community Director Device Identifier Shelf Expiration Date Model / Serial / Lot Ltka Total Stabilizer Tibial Insert Implanted:Qty: 1 on 03/09/2024 by Maxi Andrew MD at [facility] Left: Knee GUNNAR 10/09/2025 [id number] / / [id number] Description:The implant type , laterality (when applicable), size, and expiration date have been visually and verbally confirmed by the Surgeon, Circulating RN and Scrub Personnel. Procedures Procedure Name Priority Date/Time Associated Diagnosis Comments XR HIP 2 VW LEFT PLUS PELVIS Routine 09/12/2024 9:08 AM EDT Left hip pain XR KNEE 3 VIEW (LEFT) Routine 09/12/2024 9:08 AM EDT Aftercare following joint replacement surgery from Last 3 Months Results * XR HIP 2 VW LEFT PLUS PELVIS (09/12/2024 9:08 AM EDT) Anatomical Region Laterality Modality Hip, Pelvis Computed Radiogr aphy 09/12/2024 9:18 AM EDT Impressions 09/12/2024 12:59 PM EDT 1. Left knee revision total arthroplasty unchanged in alignment without evidence of hardware complication. 2. Severe degenerative changes of the left hip. No fracture. 3. Osseous demineralization. RECOMMENDATIONS: DEXA scan. ATTESTATION: I, Dr. Trevin Lam as teaching physician, have reviewed the images for this case and if necessary edited the report originally created by Dr. Giovanni Severino. Narrative 09/12/2024 12:59 PM EDT XR KNEE 3 VIEW (LEFT), XR HIP 2 VW LEFT PLUS PELVIS Referring clinician's provided indication for this examination in [facility]: Knee replacement, asymptomatic, follow up COMPARISON: XR KNEE 3 VIEW (LEFT) FINDINGS: Left knee: Unchanged alignment of the revision constrained left total knee arthroplasty. No periprosthetic fracture or lucency. Similar soft tissue mineralization about the knee. No knee joint effusion. Frontal evaluation the right knee demonstrates degenerative change with joint space loss in the medial compartment. Left hip: No displaced fracture. Degenerative changes of the bilateral sacroiliac joints and pubic symphysis. Frontal evaluation of the right hip demonstrates degenerative changes. Severe degenerative changes of the left hip with joint space loss and osseous remodeling. Osseous demineralization. Procedure Note Trevin Lam MD - 09/12/2024 XR KNEE 3 VIEW (LEFT), XR HIP 2 VW LEFT PLUS PELVIS Referring clinician's provided indication for this examination in [facility]:Knee replacement, asymptomatic, follow up COMPARISON: XR KNEE [...] space loss and osseous remodeling. Osseousdemineralization. IMPRESSION: 1. Left knee revision total arthroplasty unchanged in alignment withoutevidence of hardware complication. 2. Severe degenerative changes of the left hip. No fracture. 3. Osseous demineralization. RECOMMENDATIONS: DEXA scan. ATTESTATION: I, Dr. Trevin Lam as teaching physician, have reviewed theimages for this case and if necessary edited the report originally createdby Dr. Giovanni Severino. Martha Ely Madiha RN PACU IMG XR PELVIS Fi nal Result * XR KNEE 3 VIEW (LEFT) (09/12/2024 9:08 AM EDT) MGB IMG RECOMMENDATION COMMENT Severe degenerative changes left hip [facility] Anatomical Region Laterality Modality Knee Left Computed Radiogr aphy 09/12/2024 9:18 AM EDT Impressions 09/12/2024 12:59 PM EDT 1. Left knee revision total arthroplasty unchanged in alignment without evidence of hardware complication. 2. Severe degenerative changes of the left hip. No fracture. 3. Osseous demineralization. RECOMMENDATIONS: DEXA scan. ATTESTATION: I, Dr. Trevin Lam as teaching physician, have reviewed the images for this case and if necessary edited the report originally created by Dr. Giovanni Severino. Narrative 09/12/2024 12:59 PM EDT XR KNEE 3 VIEW (LEFT), XR HIP 2 VW LEFT PLUS PELVIS Referring clinician's provided indication for this examination in Epic: Knee replacement, asymptomatic, follow up COMPARISON: XR KNEE 3 VIEW (LEFT) FINDINGS: Left knee: Unchanged alignment of the revision constrained left total knee arthroplasty. No periprosthetic fracture or lucency. Similar soft tissue mineralization about the knee. No knee joint effusion. Frontal evaluation the right knee demonstrates degenerative change with joint space loss in the medial compartment. Left hip: No displaced fracture. Degenerative changes of the bilateral sacroiliac joints and pubic symphysis. Frontal evaluation of the right hip demonstrates degenerative changes. Severe degenerative changes of the left hip with joint space loss and osseous remodeling. Osseous demineralization. Procedure Note Trevin Lam MD - 09/12/2024 XR KNEE 3 VIEW (LEFT), XR HIP 2 VW LEFT PLUS PELVIS Referring clinician's provided indication for this examination in [facility]:Knee replacement, asymptomatic, follow up COMPARISON: XR KNEE [...] space loss and osseous remodeling. Osseousdemineralization. IMPRESSION: 1. Left knee revision total arthroplasty unchanged in alignment withoutevidence of hardware complication. 2. Severe degenerative changes of the left hip. No fracture. 3. Osseous demineralization. RECOMMENDATIONS: DEXA scan. ATTESTATION: I, Dr. Trevin Lam as teaching physician, have reviewed theimages for this case and if necessary edited the report originally createdby Dr. Giovanni Severino. Martha Cleary RN PACU IMG XR LOWER EXTRE MITY Final Result from Last 3 Months Insurance MEDICARE PART A & B [facility] MEDICARE SUPPLEMENT MEDICARE PART A & B Member Subscriber Plan / Payer ( fective 2018-Present) Name:Katie Hernandez Member ID:[id number] Relation to Subscriber:Self Name:Katie Hernandez Subscriber ID:[id number] Payer ID:[id number] Group ID:Not on file Type:Medicare Address: [employer] [address] [place] [address] [employer] MEDICARE SUPPLEMENT MEDICARE PART A & B [employer] MEDICARE SUPPLEMENT MEDICARE PART A & B [facility] [employer]ION MEDICARE SUPPLEMENT MEDICARE PART A & B [facility] MEDICARE SUPPLEMENT MEDICARE PART A & B [facility] [employer] MEDICARE SUPPLEMENT Care Teams Alterations Tailor Relationship Specialty Start Date End Date Heron Deleon DO [address] [place] [address] [address] [place] [address] PCP - General Internal Medicine 09/16/23 Additional Source Comments The information contained in this document represents components of the legal health record. It is not the complete legal health record.[facility]
--- OUTSIDE RECORDS SUMMARY | 2024-11-09 14:28 | XMS_ITS | Clinical Summary ---
Author Organization [address] [facility] Address [address] [facility] [place] [address] Phone Care Team Providers Care Sap Consultant Name Role Phone Britt Parmar NP Primary Care Provider Family History Medical History Relation Name Comments [...] 2024 , 04/05/2023, 11/19/2021, Additional history exists Breast Cancer Screening 08/07/2026 08/08/19, 06/28/2023, 06/21/2022, [...] screening mammogram for malignant neoplasm of breast LIPID PANEL WITH REFLEX TO DIRECT LDL [...] probability of hip fracture of 4.6%. Code 89163 -------- FINAL REPORT -------- Dictated By: Kenny Jorgensen Dictated Date: 08/07/2024 09:53 ET Assigned Physician: Kenny Jorgensen Reviewed and Electronically Signed By: Kenny Jorgensen Signed Date: 08/07/2024 09:55 ET Workstation ID: [id number] Transcribed By: Self Edit Transcribed Date: 08/07/2024 [...] density of the femurs bilaterally is 0.666 gm/ci6vzsfj is 66% of that of young normals [...] probability of hip fracture of 4.6%. Code 91363 -------- FINAL REPORT -------- Dictated By: Kenny Jorgensen Dictated Date: 08/07/2024 09:53 ET Assigned Physician: Kenny Jorgenesn Reviewed and Electronically Signed By: Kenny Jorgensen Signed Date: 08/07/2024 09:55 ET Workstation ID: [id number] Transcribed By: Self Edit Transcribed Date: 08/07/2024 09:53 ET us Heron Deleon DO IMG DXA PROCEDURES Final Resu lt * MG Mammo Digital Screening w Benjamin bilat (08/07/2024 9:16 AM EDT) Anatomical Region Laterality Modality Breast Bilateral Mammography 08/07/2024 2:34 PM EDT Impressions 08/07/2024 2:35 PM EDT No evidence of breast malignancy. BI-RADS CATEGORY: 1 - NEGATIVE RECOMMENDATION: Screening bilateral mammogram is recommended in 1 year. Mammo Location: [facility], [address] [place] [address], [address], . -------- FINAL REPORT -------- Dictated By: Molly Martell Dictated Date: 08/07/2024 14:34 ET Assigned Physician: Molly Martell Reviewed and Electronically Signed By: Molly Martell Signed Date: 08/07/2024 14:35 ET Workstation ID: [id number] Transcribed By: Self Edit Transcribed Date: 08/07/2024 [...] year. Mammo Location: [facility], [address] [place] [address], [address], . -------- FINAL REPORT -------- Dictated By: Molly Martell Dictated Date: 08/07/2024 14:34 ET Assigned Physician: Molly Martell Reviewed and Electronically Signed By: Molly Martell Signed Date: 08/07/2024 14:35 ET Workstation ID: [id number] Transcribed By: Self Edit Transcribed Date: 08/07/2024 [...] 11:22 AM EDT 05/09/2024 11:22 AM EDT Britt Parmar NP LAB BLOOD ORDERABLES Fi nal Result [facility] [address] [place] [address], from Last 3 Months or Most Recently Relevant to Health Maintenance Insurance MEDICARE [facility] Care Teams Sap Consultant Relationship Specialty Start Date End Date Britt Parmar, CHACHA [address] [place] [address] [place] [address] PCP - General 07/08/23
--- OUTSIDE RECORDS SUMMARY | 2024-11-09 14:28 | XMS_ITS | Continuity of Care Document ---
Author Organization [place] - [facility], [address] Address [address] [place] [address] Care Team Providers Care Heavy Equipment Field Mechanic Name Role Phone CHATO BAXTER Primary Care Provider [phone] Assessment Encounter Date Assessment Date Assessment LastModified by Organization Details LastModified Time 11/05/2024 11/05/2024 I am seeing the patient today under the supervision of Dr. Murray who was available but who did not [...] of continued conservative management versus surgical management. [email or web address] Not available 11/05/2024 08:03:38 Plan of Treatment Reminders Order Date Submit Date Provider Last Modified By Organization Details Last Modified Time Details Appointments RECHECK 15 2024 09:45A M Kenny Bro PA-C Not available Not available Not available Lab None recorded . Referral None recorded . Procedures None recorded . Surgeries None recorded . Imaging None recorded . Medication Orders None recorded . Patient TargetsNo targets recorded. Patient InstructionsNo instructions recorded. Reason for Referral None Reported. Problems Name Problem SNOMED Code Status Onset Date Resolution Date Notes Provider Name and Address Organization Details Recorded Time No complaint s 039256684 Active Status: 'I'; Not Available [facility] 4 09:26:48 Idiopathi c osteoarth ritis 634871256 Active 2016 Problem Code: M17.0; Problem Code Type: ICD-10; Status: 'A'; Not Available [facility] 4 11:27:38 Pain of right knee joint 012949756783 100 Active 2016 Problem Code: M25.561; Problem Code Type: ICD-10; Status: 'A'; ELSA RAYMOND [facility] 5 15:58:55 History of major orthopedi c surgery 784823854 Active 2021 Status: 'A'; Not Available [facility] 4 11:27:38 Osteoarth ritis of right knee joint 644702996694 100 Active 2023 Kalyani Willoughby PA-C [address], [place], [address] , [facility] 4 08:38:20 Problem Notes None recorded. Procedures Surgical History Date Name Laterality Status Provider Name and Address Organization Details Recorded Time 5 FARRAHEE INJ completed Ezequiel Prater PA-C [address], [place], [address], [facility] 11/05/2024 08:03:41 5 LUCIO INJ completed Ezequiel Prater PA-C [address], [place], [address], [facility] 08/02/2024 07:53:18 5 JZKNEE INJ completed Ezequiel Prater PA-C [address], [place], [address], [facility] 04/23/2024 11:00:43 5 Orthopedic Surgery completed KAYLIA L'HEUREUX [facility] 04/23/2024 15:57:49 4 Sports Knee 4&1 completed Kalyani Willoughby PA-C [address], [place], [address], [facility] 10/26/2023 12:03:03 4 Sports Knee 4&1 completed Kalyani Willoughby PA-C [address], [place], [address], [facility] 07/28/2023 08:38:15 1 Knee Surgery completed TOMASZ Chatterjee [facility] 10/27/2023 09:38:46 5 Knee Surgery completed KAYLIA L'HEUREUX [facility] 04/23/2024 15:57:49 Imaging Results None recorded. Procedure Notes None recorded. Medical Equipment None Reported. Allergies Allergen ID Allergen Name Allergen Category Reaction Reaction Severity Criticality Documentation Date Start Date Code Code System Note Provider Name and Address Organization Details Recorded Time 09726 sulfur medicatio n Not available Not available Not available 04/18/20232022 83301 RxNorm Not Available [facility] 12:44:35 Medications Name Sig Start Date Stop Date Status Note LastModified by Organization Details LastModified Time celecoxib 200 mg capsule TAKE 1 CAPSULE BY MOUTH TWICE A DAY 04/20 completed Not Available Not Available Not Available amoxicillin 500 mg capsule TAKE 4 CAPSULES ONE HOUR BEFORE DENTAL APPOINTME NT 11/02 completed Not Available Not Available Not Available ofloxacin 0.3 % eye drops INSTILL [...] (TWO) TIMES A DAY FOR 58 DOSES. 10/31 completed Not Available Not Available Not Available levothyroxi ne 75 mcg tablet TAKE 1 TABLET BY MOUTH EVERY MORNING ON AN EMPTY STOMACH active Not Available Not Available [...] MOUTH TWICE A DAY FOR 10 DAYS 10/31 completed Not Available Not Available Not Available polymyxin B sulfate 10,000 unit-trimet hoprim [...] DAYS MUST ADMINISTE R WITH A MEAL/FOOD 10/31 completed Not Available Not Available Not Available duloxetine 30 mg capsule,del ayed release TAKE 1 CAPSULE BY MOUTH EVERY DAY 04/20 completed Not Available Not Available Not Available duloxetine 60 mg capsule,del ayed release TAKE 1 CAPSULE BY MOUTH EVERY DAY 04/23 completed Not Available Not Available Not Available Vitals Date Recorded Body height Body mass index (BMI) Body weight Provider Name and Address Organization Details Last Updated DateTime 11/05/2024 149.86 cm 34.3 kg/m2 17289.7 g SANJUANITA Knottemir [facility] 11/05/2024 10:06:53 Social History Question Answer Notes LastModified by [facility] ion Details LastModified Time Tobacco Smoking Status Never Smoker TOMASZ navarrete [facility] 07/28/2023 10:28:45 Which Of Your Hands Is Dominant? Right [email or web address] Information not available 07/28/2023 What Is Your Relationship Status? Information not available 08/02/2024 Sex: Unknown Functional Status Question Answer Note LastModified by Organizat ion Details LastModified Time How many times [...] N Vascular Disease N Heart Trouble N Gastrointestinal Disease N Heart Attack ([place]) N Cholesterol Y Diabetes N Autoimmune disease N Bleeding Disorder N Orthotics N Arthritis Y Seizures/Epilepsy N Blood Clot N AIDS/HIV N Congestive Heart Failure (CHF) N Acid Reflux (GERD) N Cancer N Stroke N Asthma N Circulation Problems N Peripheral Vascular Disease N Sleep Apnea N Hepatitis N Heart Disease N Rheumatoid Arthritis N Arrhythmia N Pulmonary Embolism N Headaches N Fibromyalgia N Hypertension N Osteoporosis N Gynecological HistoryNo gynecological history recorded. Obstetrics History GPAL:G 0 P 0 0 0 0 Past Encounters Encounter ID Performer Location Encounter Start Date Encounter Closed Date Diagnosis/Indication Diagnosis SNOMED-CT Code Diagnosis ICD10 Code Diagnosis IMO Codes Diagnosis Note [id number] FRANKLYN [address] [facility] [place] [address] 11/05/2024 09:38:41 11/05/2024 10:21:53 Osteoarthritis of right knee joint 2425435218 20605 M17.11 5131338 Health Concerns Section Related Observation LastModified by Organization Detai ls LastModified Time None Recorded Concern Status LastModified by Organization Details LastModified Time None Recorded Payers Encounter Date Sequence Insurance Name Policy Number Policy Nunez Covered Member ID Nunez Member ID Guarantor Name 11/05/2024 1 [place]ARE [place]: [employer] Katie Hernandez [id number] Katie Hernandez 11/05/2024 2 [facility] INDEMNITY PLAN - [facility] [id number] Katie Hernandez [id number] Katie Hernandez OBGyn Episode No OBEpisode recorded.
--- OUTSIDE RECORDS SUMMARY | 2024-11-09 14:28 | XMS_ITS | Data Portability ---
Author Organization [facility], [facility] Address [address] [place] [address] Care Team Providers Care Solar Power Installer Name Role Phone CHATO BAXTER Primary Care Provider Assessment Encounter Date Assessment Date Assessment LastModified [...] of continued conservative management versus surgical management. Not available 04/23/2024 16:47:25 08/02/2024 08/02/2024 I [...] of continued conservative management versus surgical management. [email or web address] Not available 08/02/2024 07:53:30 11/05/2024 11/05/2024 I am seeing the patient [...] of continued conservative management versus surgical management. [email or web address] Not available 11/05/2024 08:03:38 Plan of Treatment [...] right knee pain room 218 2024 025 [email or web address] [facility], [address] [facility], [facility] [address], [address], 05/07/2024 15:45:56 Medication Orders None recorded . Patient TargetsNo targets recorded. Patient InstructionsNo instructions recorded. Reason for Referral None Reported. Results Created Date Observation Date Name Description Value Unit Range Abnormal Flag Note LastModifiedBy Organization Detail LastModifiedTime 04/24/1904/23/2024 XR, knee, 4 or more view http:/ [email or web address] ?Encry pted=s hAaTro YD8dLq bEUv6g %2BXZw aYqtaq 0bqfl% 2Fg9IQ a4ajBk vP9nXo QUaueC m3YtLR FvZl[address] HZtai3 4h4150 AC0KqY n2FV6K lKiQtr MwF INTERFACE [facility] Office [address] [facility] [address], [place], [address], 04/23/2024 16:12:24 04/24/19 25 04/23/2024 XR, knee, 4 or more view http:/ [email or web address] ?Encry pted=s hAaTro YD8dLq bEUv6g %2BXZw aYqtaq 0bqfl% 2Fg9IQ a4ajBk vP9nXo QUaueC m3YtLR Fv[address]ta[address] 4d6120 AC0KqY n2FV6K lKiQtr MwF INTERFACE [facility] Office [address] [facility] [address], [place], [address], 04/23/2024 16:12:26 Result Notes Documentation Provider Name and Address Organization Details Recorded Time Xr, Knee, 4 Or More View : [email or web address] Encrypted=voYbMgnBN9mSioF Uv6g%1VIQndAoivx9tjet%2Fg 8WIv8phGsuF9tHhTJodiYh5Wo HSIbZsbUKX5sFpFFiwh55v318 5CD3NzNh9FU3UsYlXfzLdJ Not Available [facility] 04/23/2024 16:12: 24 Xr, Knee, 4 Or More View : [email or web address] Encrypted=rmSxOobJY6dCntZ Uv6g%4IRKmqXhruk5qrfx%2Fg 1AMn4isCdtB3eZlHSnxkLe5Pe SQTgQhnDWY8tZtGXpgc36a402 4JI5KiLx7QT2SoIlWwfTmV Not Available [facility] 04/23/2024 16:12: 26 Problems Name Problem SNOMED Code Status Onset Date Resolution Date Notes Provider Name and Address Organization Details Recorded Time No complaint s 353284480 Active Status: 'I'; Not Available [facility] 4 09:26:48 Idiopathi c osteoarth ritis 166465319 Active 2016 Problem Code: M17.0; Problem Code Type: ICD-10; Status: 'A'; Not Available [facility] 4 11:27:38 Pain of right knee joint 308062908899 100 Active 2016 Problem Code: M25.561; Problem Code Type: ICD-10; Status: 'A'; ELSA navarrete [place] - [facility] 15:58:55 History of major orthopedi c surgery 261839521 Active 2021 Status: 'A'; Not Available [facility] 4 11:27:38 Osteoarth ritis of right knee joint 346622155992 100 Active 2023 Kalyani Willoughby PA-C [address], [place], [address] , [facility] 4 08:38:20 Problem Notes None recorded. Procedures Surgical History Date Name Laterality Status Provider Name and Address Organization Details Recorded Time 5 JZKNEE INJ completed Ezequiel Prater PA-C [address], [place], [address], [facility] 11/05/2024 08:03:41 5 JZKNEE INJ completed Ezequiel Prater PA-C [address], [place], [address], [facility] 08/02/2024 07:53:18 5 JZKNEE INJ completed Ezequiel Prater PA-C [address], [place], [address], [facility] 04/23/2024 11:00:43 5 Orthopedic Surgery completed KAYLIA L'HEUREUX [facility] 04/23/2024 15:57:49 4 Sports Knee 4&1 completed Kalyani Willoughby PA-C [address], [place], [address], [facility] 10/26/2023 12:03:03 4 Sports Knee 4&1 completed Kalyani Willoughby PA-C [address], [place], [address], [facility] 07/28/2023 08:38:15 1 Knee Surgery completed TOMASZ Chatterjee [facility] 10/27/2023 09:38:46 01/24/192 5 Knee Surgery completed KAYLIA L'HEUREUX [place] - [facility] 04/23/2024 15:57:49 Imaging Results None recorded. Procedure Notes None recorded. Medical Equipment None Reported. Allergies Allergen ID Allergen Name Allergen Category Reaction Reaction Severity Criticality Documentation Date Start Date Code Code System Note Provider Name and Address Organization Details Recorded Time 16200 sulfur medicatio n Not available Not available Not available 04/18/20232022 96166 RxNorm Not Available [facility] 12:44:35 Medications Name Sig Start Date [...] Updated DateTime 04/23/2024 149.86 cm 34.3 kg/m2 96433.7 g ELSA L'HEURJIM [facility] 04/23/2024 15:58:02 Date Recorded Body height Body mass index (BMI) Body weight Provider Name and Address Organization Details Last Updated DateTime 07/28/2023 149.86 cm 34.3 kg/m2 71604.7 g TOMASZ Chatterjee [facility] 07/28/2023 10:28:33 Date Recorded Body height Body mass index (BMI) Body weight Provider Name and Address Organization Details Last Updated DateTime 08/02/2024 149.86 cm 34.3 kg/m2 12108.7 g SCOTTIE OCASIO [facility] 08/02/2024 10:38:17 Date Recorded Body height Body mass index (BMI) Body weight Provider Name and Address Organization Details Last Updated DateTime 10/27/2023 149.86 cm 34.3 kg/m2 51525.7 g TOMASZ PANKAJ Chatterjee [facility] 10/27/2023 09:39:09 Date Recorded Body height Body mass index (BMI) Body weight Provider Name and Address Organization Details Last Updated DateTime 11/05/2024 149.86 cm 34.3 kg/m2 11687.7 g SANJUANITA Knottemir [facility] 11/05/2024 10:06:53 Social History Question Answer Notes LastModified by [employer] ion Details LastModified Time Tobacco Smoking Status Never Smoker TOMASZNAOMY navarrete [facility] 07/28/2023 10:28:45 Which Of Your Hands Is Dominant? Right Information not available 07/28/2023 What Is Your Relationship Status? [email or web address] Information not available 08/02/2024 Sex: Unknown Functional Status Question Answer Note LastModified by [employer] ion Details LastModified Time How many times [...] Response Allergies/Hayfever N Coronary Artery Disease N Anxiety/Depression N Breathing or lung disorders N Emphysema N Nerve Disorders N Thyroid Problems Y COPD N Pacemaker N Anemia N Kidney/Bladder Problems N Vascular Disease N Heart Trouble N Heart Attack (SD) N Gastrointestinal Disease N Cholesterol Y Diabetes [...] ICD10 Code Diagnosis IMO Codes Diagnosis Note [id number] Kalyani Willoughby PA-C [place] [address] [place] [address] 07/28/2023 10:05:17 08/17/2023 14:32:15 Osteoarthritis of right knee joint 4797980213 92458 M17.11 History of total knee arthroplasty 5771785971 105 Z96.068 [id number] Kalyani Willoughby PA-C [place] [address] [place] [address] 10/27/2023 09:31:14 11/09/2023 10:31:16 Osteoarthritis of right knee joint 3393429169 M17.11 History of total knee arthroplasty 4771054136 105 Z96.975 [id number] Ezequiel Prater PA-C [facility] [place] [address] [place] [address] 04/23/2024 15:40:10 05/07/2024 15:45:55 Osteoarthritis of right knee joint 6103825369 48237 M17.11 [id number] Pain of ri ght knee joint 2211098471 63055 M25.[facility] [id number] Ezequiel Prater PA-C [facility] [place] [address] [place] [place] [address] 08/02/2024 10:19:33 08/15/2024 08:35:08 Osteoarthritis of right knee joint 8491475996 M17.11 5262700 [id number] Ezequiel Prater PA-C [facility] [place] [address] [place] [address] 11/05/2024 09:38:41 11/05/2024 10:21:53 Osteoarthritis of right knee joint 2982922952 53951 M17.11 [id number] Health Concerns Section Related Observation LastModified by Organization Detai ls LastModified Time None Recorded Concern Status LastModified by Organization Details LastModified Time None Recorded Advance Directives Directive None Recorded Payers Insurance Date Sequence Insurance Name Policy Number Policy Nunez Covered Member ID Nunez Member ID Guarantor Name 11/05/2024 1 [place]: [employer] Katie Hernandez [id number] Katie Hernandez 11/05/2024 2 [facility] - [facility] [id number] Katie Hernandez [id number] Katie Hernandez Notes Date Note Type Note Provider Name and Address Organization Details Recorded Time 07/28/2023 text/html I am seeing the patient today under the supervision of Dr. Duenas who was available but who did not see the patient. HPI:Patient presents today follow-up regarding their Right knee. Previous injection 04/22/23 in [place] gave good relief until recent. Pwbc-dat-kalawzq medications are helping somewhat but not significantly. Pain is constant aching sometimes sharp pain with giving out sensations. History of total left knee arthroplasty with Dr. Jain, unfortunately patient has more pain now than prior to surgery. She is frustrated. She has previously been sent for inflammatory markers which have been within normal limits. She was referred to pain management and underwent a genicular nerve block on her left knee, which she reports did not help. She tried Meloxicam and every cream on the market with minimal relief. Past family, medical, social history and review of systems has been reviewed, updated and is located in the patient s chart. Examination:The patient is well appearing and in no apparent distress. Alert and oriented x3. Ambulating with a cane. Examination of the Right knee reveals no evidence of any edema, erythema, or warmth. No Deformity. Range of motion of the knee limited with mild discomfort at the end ranges. Mild effusion. Does have some tenderness to palpation about the medial hemijoint line. No tenderness to palpation about the lateral hemijoint line. Patellofemoral crepitus is noted. Calf is supple and nontender. Neurovascularly intact distally. Impression:1.Right Knee osteoarthritis 2. Ongoing, left knee pain following total knee arthroplasty Dr. Jain 2020 Plan:Patient elected to proceed with repeat right knee cortisone injection today. Discussed utilizing her cane, low impact exercises and over the counter anti-inflammatories as needed. Regarding her left knee, we discussed a small percentage of patients who undergo joint replacement continue to have pain and are unhappy. She discussed she is going to seek a second opinion in [place], recommended she obtain all of her records prior to going. Follow up in 3 months for her right knee injection. All of their concerns were addressed and they understand and agree with the plan. Speech recognition metal gauge maker software was used to create portions of this document. An attempt at proofreading has been made to minimize errors. Please call for corrections. Kalyani Willoughby PA-C [address] [place] [address] [address], [place], [address], [facility] - [facility] 07/28/2023 11:45:09 10/27/2023 text/html I am seeing the patient today under the supervision of Dr. Little who was available but who did not see the patient. HPI:Patient presents today follow-up regarding their Right knee. Previous injection 07/28/23 in [place] gave good relief until recent. Epps-lpl-hnzgbiu medications are helping somewhat but not significantly. Pain is constant aching sometimes sharp pain with giving out sensations. History of total left knee arthroplasty with Dr. Jain, unfortunately patient has more pain now than prior to surgery. She is frustrated. She has previously been sent for inflammatory markers which have been within normal limits. She was referred to pain management and underwent a genicular nerve block on her left knee, which she reports did not help. She tried Meloxicam, celebrex, gabapentin and every cream on the market with minimal relief. She has also tried a left hip intra-articular cortisone injection. She has had a CT scan demonstrating no evidence of loosening. She has a second opinon appointment at [facility] in December. Past family, medical, social history and review of systems has been reviewed, updated and is located in the patient s chart. Examination:The patient is well appearing and in no apparent distress. Alert and oriented x3. Ambulating with a cane. Examination of the Right knee reveals no evidence of any edema, erythema, or warmth. No Deformity. Range of motion of the knee limited with mild discomfort at the end ranges. Mild effusion. Does have some tenderness to palpation about the medial hemijoint line. No tenderness to palpation about the lateral hemijoint line. Patellofemoral crepitus is noted. Calf is supple and nontender. Neurovascularly intact distally. Impression:1.Right Knee osteoarthritis 2. Ongoing, left knee pain following total knee arthroplasty Dr. Jain 2020 - patient is seeking second opinion in [place] Plan:Patient elected to proceed with repeat right knee cortisone injection today. Discussed utilizing her cane, low impact exercises and over the counter anti-inflammatories as needed. Regarding her left knee, we discussed a small percentage of patients who undergo joint replacement continue to have pain and are unhappy. She discussed she is going to seek a second opinion in [place], recommended she obtain all of her records prior to going. Follow up in 3 months for her right knee injection. All of their concerns were addressed and they understand and agree with the plan. Speech recognition metal gauge maker software was used to create portions of this document. An attempt at proofreading has been made to minimize errors. Please call for corrections. Kalyani Willoughby PA-C [facility] [address], [place], [address], [facility] - [facility] 10/27/2023 10:04:20 OBGyn Episode No OBEpisode recorded.
--- OUTSIDE RECORDS SUMMARY | 2024-11-09 14:28 | XMS_ITS | Encounter Summary ---
Author Organization [facility] Address [address] [place] [address] Phone Care Team Providers Care Classifications Officer Cc/Cm Name Role Phone Heron Deleon DO Primary Care Provider [phone] Encounter Details Date Type Department Care Team (Late st Contact Info) Description 03/09/2024 Procedure Pass [facility] PERIOPERATIVE DEPT [address] [place], [place] [id number] Social History Tobacco Use Types Packs/Day Years [...] 03/09/2024 3:59 PM Isi Monge RN * [place] Suicide Severity Rating Scale (Screener/Recent Self-Report) Question Answer Date of Assessment Author 1. Wish to be (Past 1 Month) No 03/09/2024 3:59 PM Isi Monge RN 2. Non-Specific Active Suicidal Thoughts (Past 1 Month) No 03/09/2024 3:59 PM Isi Monge [place], RN 6. Suicidal Behavior (Lifetime) No 03/09/2024 3:59 PM EST [place], Isi Ma rupesh, RN documented as of this encounter Plan of Treatment Not on file documented as of this encounter Visit Diagnoses Not on filedocumented in this encounter Care Teams Classifications Officer Cc/Cm Relationship Specialty Start Date End Date Heron Deleon DO [address] [place] [address] [address] [place] [address] PCP - General Internal Medicine 09/16/23 documented as of this encounter Additional Source Comments The information contained in this document represents components of the legal health record. It is not the complete legal health record.[facility]
--- OUTSIDE RECORDS SUMMARY | 2024-11-09 14:28 | XMS_ITS | Encounter Summary ---
Author Organization [facility] Address [address] [place] [address] Phone Care Team Providers Care Chain Maker Name Role Phone Heron Deleon DO Primary Care Provider [phone] Encounter Details Date Type Department Care Team (Late st Contact Info) Description 01/25/2024 Transcribe Orders [facility] SPECIMEN [address] [place] [address] Martha Cleary, BETTE [address] [id number] [email or web address] Social History Tobacco Use Types Packs/Day Years Used Date Smoking Tobacco: Never Assessed Education Answer Date Recorded Are you interested in more education? Not on milton e 09/16/2023 Are you concerned about learning? Not on file 09/16/2023 No 09/16/2023 No 09/16/2023 Digital Access Answer Date Recorded No 09/16/2023 No 09/16/2023 Reliable internet access at home? Not on file 09/16/2023 Device with a working camera? Not on file Comments Unknown Sex and Gender Information Value Date Recorded Sex Assigned at Female 09/16/2023 9:05 AM EDT Legal Sex Female 8:59 AM EDT Gender Identity Female 09/16/2023 9:05 AM EDT Sexual Orientation Straight 09/16/2023 9: 05 AM EDT documented as of this encounter Plan of Treatment Not on file documented as of this encounter Visit Diagnoses Not on filedocumented in this encounter Care Teams Chain Maker Relationship Specialty Start Date End Date Heron Deleon DO [address] [place] [address] [address] [place] [address] PCP - General Internal Medicine 09/16/23 documented as of this encounter Additional Source Comments The information contained in this document represents components of the legal health record. It is not the complete legal health record.[facility]
[2024-11-16 10:28] VITALS: BP 139/93; PULSE 76; RESP 16; O2SAT 100; BMI 33.8
--- NOTE | 2024-11-16 10:59 | HO.ANESPROP2 ---
Documented by User: Carissa Danielson NP 11/30/24 12:23 HPI - Anesthesia Eval Consult details Narrative: 69yo F for Left Hip Total Replacement, 12/18/24 Medically optimized per PCP No recent illness No CP/SOB within limits of pain. Ambulates with walker PMFSH Active Problems Active Problems: All Active Problems Osteoarthritis of left hip (Acute) Hypothyroidism (Acute) HLD (hyperlipidemia) (Acute) Past Medical History Medical History Osteoarthritis Thyroid disease Family History Family history of problems with anesthesia: No Surgical History Surgical History Hx of bilateral cataract extraction Hx of ovarian cystectomy H/O colonoscopy History of total left knee replacement (TKR) History of revision of total knee arthroplasty History of Problems with Anesthesia: No Social History Social History Are you a primary respiratory care instructor to a significant other at home: No Do you presently have visiting nurse or other home services: No Alcohol intake: never Comment: counts correct Patient Tobacco Use Status: Never used Tobacco Use of substances other than those prescribed or required for medical reasons: No Have you been hit, kicked, punched, or otherwise hurt by someone within the past year? If so, by whom?: No Are you DNR?: No Advance Directives: No Advance Directives Information Provided: Yes Advance Directives on File: No Patient : No : No Poor oral hygiene: Yes Current occupational status: retired Current occupation: right hand dominant Meds Allergies Allergy/AdvReac Type Severity Reaction Status Date / Time Sulfa (Sulfonamide Allergy Stomach Verified 11/29/24 14:33 Antibiotics) Upset Home Medications ?Medication ?Instructions ?Recorded ?Confirmed ?Last Taken ?Type levothyroxine 75 mcg capsule 75 mcg PO DAILY 09/11/24 12/04/24 12/03/24 History rosuvastatin 5 mg tablet 5 mg PO DAILY 09/11/24 12/04/24 12/03/24 History acetaminophen 500 mg tablet 1,000 mg PO Q6H PRN Pain 11/16/24 12/04/24 12/03/24 History calcium carbonate 600 mg PO BID 11/16/24 12/04/24 12/03/24 History ibuprofen 200 mg tablet 400 mg PO Q6H PRN Pain 11/16/24 12/04/24 11/27/24 History Exam Height,Weight and Vital Signs: Height 5 ft Weight 78.471 kg Last Vital Signs Pulse 76 11/16/24 10:28 Resp 16 11/16/24 10:28 BP 139/93 H 11/16/24 10:28 Pulse Ox 100 11/16/24 10:28 O2 Del Method Room Air 11/16/24 10:28 Pertinent Lab Results Pertinent Lab Results: Lab Results 11/16/24 11/16/24 11/29/24 Range/Units 10:45 11:19 15:12 WBC 9.2 (4.8-10.8) X10*3/uL RBC 4.75 (4.20-5.50) X10*6/uL Hgb 14.0 (12.0-16.0) g/dl Hct 43.1 (37.0-47.0) % MCV 90.7 (80.0-98.0) fL MCH 29.5 (27.0-33.0) pg MCHC 32.5 (31.0-35.0) g/dl RDW 13.9 (11.0-16.0) % Plt Count 506 H (160-400) X10*3/uL MPV 10.0 (9.4-12.3) fL Immature Gran % (Auto) (0.0-0.4) % Neut % (Auto) (45-73) % Lymph % (Auto) (20-40) % King % (Auto) (2-11) % Eos % (Auto) (0-4) % Baso % (Auto) (0-2) % Lymph # (Auto) (1.2-4.9) X10*3/uL King # (Auto) (0.1-1.2) X10*3/uL Eos # (Auto) (0.0-0.4) X10*3/uL Baso # (Auto) (0.0-0.2) X10*3/uL Abs Immat Gran (auto) (0.00-0.03) X10*3/uL Absolute Neuts (auto) (2.0-8.3) x10*3/uL Absolute Nucleated RBC 0.000 (0.0-0.012) X10*3/uL Nucleated RBC % (auto) 0.0 (0.0-0.2) /100WBC Sodium 141 (135-145) mmol/L Potassium 4.9 (3.3-5.1) mmol/L Chloride 106 (96-108) mmol/L Carbon Dioxide 30 H (22-29) mmol/L Anion Gap 10 L (12-20) BUN 28 H (9-16) mg/dL Creatinine 0.84 (0.5-1.4) mg/dL Estim Creat Clear Calc 56.9 Estimated GFR > 60 Random Glucose 80 (60-115) mg/dL Calcium 9.7 (8.4-10.2) mg/dL Total Bilirubin 0.6 (0.0-1.0) mg/dL AST 18 (5-31) U/L ALT 16 (0-31) U/L Alkaline Phosphatase 83 (39-117) U/L Total Protein 7.9 (6.5-8.0) g/dL Albumin 4.8 (3.5-5.0) g/dL Nasal Screen MRSA (PCR) NEGATIVE (Negative) Nasal S. aureus Screen NEGATIVE (Negative) Nasal MRSA/S.aureus Interp SEE NOTE Blood Type A Positive Antibody Screen NEGATIVE 11/29/24 Range/Units 15:19 WBC 8.1 (4.8-10.8) X10*3/uL RBC 4.44 (4.20-5.50) X10*6/uL Hgb 12.9 (12.0-16.0) g/dl Hct 40.4 (37.0-47.0) % MCV 91.0 (80.0-98.0) fL MCH 29.1 (27.0-33.0) pg MCHC 31.9 (31.0-35.0) g/dl RDW 13.9 (11.0-16.0) % Plt Count 409 H (160-400) X10*3/uL MPV 9.8 (9.4-12.3) fL Immature Gran % (Auto) 0.2 (0.0-0.4) % Neut % (Auto) 68.3 (45-73) % Lymph % (Auto) 24.1 (20-40) % King % (Auto) 6.2 (2-11) % Eos % (Auto) 0.6 (0-4) % Baso % (Auto) 0.6 (0-2) % Lymph # (Auto) 1.9 (1.2-4.9) X10*3/uL King # (Auto) 0.5 (0.1-1.2) X10*3/uL Eos # (Auto) 0.1 (0.0-0.4) X10*3/uL Baso # (Auto) 0.1 (0.0-0.2) X10*3/uL Abs Immat Gran (auto) 0.02 (0.00-0.03) X10*3/uL Absolute Neuts (auto) 5.5 (2.0-8.3) x10*3/uL Absolute Nucleated RBC 0.000 (0.0-0.012) X10*3/uL Nucleated RBC % (auto) 0.0 (0.0-0.2) /100WBC Sodium 144 (135-145) mmol/L Potassium 4.5 (3.3-5.1) mmol/L Chloride 110 H (96-108) mmol/L Carbon Dioxide 29 (22-29) mmol/L Anion Gap 10 L (12-20) BUN 17 H (9-16) mg/dL Creatinine 0.73 (0.5-1.4) mg/dL Estim Creat Clear Calc 65.5 Estimated GFR > 60 Random Glucose 97 (60-115) mg/dL Calcium 9.6 (8.4-10.2) mg/dL Total Bilirubin (0.0-1.0) mg/dL AST (5-31) U/L ALT (0-31) U/L Alkaline Phosphatase (39-117) U/L Total Protein (6.5-8.0) g/dL Albumin (3.5-5.0) g/dL Nasal Screen MRSA (PCR) (Negative) Nasal S. aureus Screen (Negative) Nasal MRSA/S.aureus Interp Blood Type Antibody Screen Narrative Narrative: EKG 10/2024 SB @ 56 LAD LBBB Airway Mallampati Class: II TM Dist: >3cm Neck ROM: Full Loose/Missing/Broken Teeth: No (Left upper permanent bridge) Heart: RRR Lungs: CTAB Assessment and Plan Assessment Anesthesia Assessment: Anesthesia Plan Discussed and PAT Visit Final Anesthetic Review Family History of Problems with Anesthesia: No History of Problems with Anesthesia: No Documented by User: Jean-Paul Almonte MD 12/04/24 13:27 PMFSH Past Medical History Medical History Osteoarthritis Thyroid disease Surgical History Surgical History Hx of bilateral cataract extraction Hx of ovarian cystectomy H/O colonoscopy History of total left knee replacement (TKR) History of revision of total knee arthroplasty Social History Social History Are you a primary respiratory care instructor to a significant other at home: No Do you presently have visiting nurse or other home services: No Alcohol intake: never Comment: counts correct Patient Tobacco Use Status: Never used Tobacco Use of substances other than those prescribed or required for medical reasons: No Have you been hit, kicked, punched, or otherwise hurt by someone within the past year? If so, by whom?: No Are you DNR?: No Advance Directives: No Advance Directives Information Provided: Yes Advance Directives on File: No Patient : No : No Poor oral hygiene: Yes Current occupational status: retired Current occupation: right hand dominant Meds Allergies Allergy/AdvReac Type Severity Reaction Status Date / Time Sulfa (Sulfonamide Allergy Stomach Verified 11/29/24 14:33 Antibiotics) Upset Home Medications ?Medication ?Instructions ?Recorded ?Confirmed ?Last Taken ?Type levothyroxine 75 mcg capsule 75 mcg PO DAILY 09/11/24 12/04/24 12/03/24 History rosuvastatin 5 mg tablet 5 mg PO DAILY 09/11/24 12/04/24 12/03/24 History acetaminophen 500 mg tablet 1,000 mg PO Q6H PRN Pain 11/16/24 12/04/24 12/03/24 History calcium carbonate 600 mg PO BID 11/16/24 12/04/24 12/03/24 History ibuprofen 200 mg tablet 400 mg PO Q6H PRN Pain 11/16/24 12/04/24 11/27/24 History Assessment and Plan Final Anesthetic Review NPO: Yes ASA Class: II Final Preanesthetic Review: No Changes in Pt Med Stat, Meds/Allgs Chart Reviewed, Consent Obtained/Reviewed and Anes Risks/Benef Reviewed Patient Risk: Low Procedure Risk: Low Anesthetic Plan Anesthetic Plan: GA Disposition: Standard PACU
[2024-11-16 11:57] LABS: Hematocrit 43.1 % (37.0-47.0); Hemoglobin 14.0 g/dl (12.0-16.0); Mean Corpuscular HGB Conc 32.5 g/dl (31.0-35.0); Mean Corpuscular Hemoglobin 29.5 pg (27.0-33.0); Mean Corpuscular Volume 90.7 fL (80.0-98.0); NRBC Abs Auto 0.000 X10*3/uL (0.0-0.012); NRBC Pct Auto 0.0 /100WBC (0.0-0.2); Platelet Count 506 X10*3/uL (160-400); Red Blood Count 4.75 X10*6/uL (4.20-5.50); White Blood Count 9.2 X10*3/uL (4.8-10.8)
[2024-11-16 12:25] LABS: MRSA Nasal PCR NEGATIVE (Negative); SA Nasal PCR NEGATIVE (Negative)
[2024-11-16 12:28] LABS: Alanine Aminotransferase 16 U/L (0-31); Albumin Level 4.8 g/dL (3.5-5.0); Alkaline Phosphatase 83 U/L (39-117); Anion Gap 10 (12-20); Aspartate Amino Transferase 18 U/L (5-31); Blood Urea Nitrogen 28 mg/dL (9-16); Calcium 9.7 mg/dL (8.4-10.2); Carbon Dioxide 30 mmol/L (22-29); Chloride 106 mmol/L (96-108); Creatinine Clr Calc Pharmacy 56.9; Estimated Glomerular Filt Rate > 60; Potassium 4.9 mmol/L (3.3-5.1); Sodium 141 mmol/L (135-145); Total Protein 7.9 g/dL (6.5-8.0)
[2024-11-29 15:20] LABS: MANUAL DIFF FLAG NO
[2024-11-29 15:58] LABS: Hematocrit 40.4 % (37.0-47.0); Hemoglobin 12.9 g/dl (12.0-16.0); Imm Gran Abs Auto 0.02 X10*3/uL (0.00-0.03); Imm Gran Pct Auto 0.2 % (0.0-0.4); Lymphocytes Absolute Auto 1.9 X10*3/uL (1.2-4.9); Mean Corpuscular HGB Conc 31.9 g/dl (31.0-35.0); Mean Corpuscular Hemoglobin 29.1 pg (27.0-33.0); Mean Corpuscular Volume 91.0 fL (80.0-98.0); NRBC Abs Auto 0.000 X10*3/uL (0.0-0.012); NRBC Pct Auto 0.0 /100WBC (0.0-0.2); Platelet Count 409 X10*3/uL (160-400); Red Blood Count 4.44 X10*6/uL (4.20-5.50); White Blood Count 8.1 X10*3/uL (4.8-10.8)
[2024-11-29 16:35] LABS: Anion Gap 10 (12-20); Blood Urea Nitrogen 17 mg/dL (9-16); Calcium 9.6 mg/dL (8.4-10.2); Carbon Dioxide 29 mmol/L (22-29); Chloride 110 mmol/L (96-108); Creatinine Clr Calc Pharmacy 65.5; Estimated Glomerular Filt Rate > 60; Potassium 4.5 mmol/L (3.3-5.1); Sodium 144 mmol/L (135-145)
[2024-12-04] VITALS (9 sets, daily range): BP systolic 128–155; BP diastolic 60–79; PULSE 73–89; RESP 12–18; TEMP 36.3–37.2; O2SAT 95–100; BMI 33.7
--- NOTE | ~2024-12-04 | XR_ITS ---
EXAMINATION: XR PELVIS CLINICAL INFORMATION: lt herminia COMPARISON: 09/11/2024. TECHNIQUE: AP view of the pelvis. FINDINGS: There has been a left total hip arthroplasty. Femoral, acetabular components are well intact, well seated, in anatomic alignment. No periprosthetic fracture or complication is evident. Moderate to severe osteoarthrosis of the right hip joint with superior joint space loss, subchondral sclerosis, spurring and cystic changes. No soft tissue abnormalities. XR/XR pelvis 1-2V IMPRESSION: Post total left hip arthroplasty without complication evident. Electronically signed by: Reece Campoverde MD 12/04/2024 01:42 PM EDT
[2024-12-04 08:54] LABS: Hematocrit 41.8 % (37.0-47.0); Hemoglobin 13.7 g/dl (12.0-16.0)
[2024-12-04] MEDS: oxyCODONE HCl ER 10 MG TAB.ER.12H PO (08:59)
[2024-12-04] MEDS: Lactated Ringers 1,000 ML 100 ML IVCONT ×3 (09:24→22:21)
--- NOTE | 2024-12-04 11:06 | MHC.SHP ---
Pre-Procedural Eval Section A - 24 Hr Update-Section A only Date of Service: 12/04/24 The patient is an INPATIENT: No Changes since office visit: Yes Cold of Flu in the past 2 weeks, Yes New Medical Problems, Yes Changes in Medication and Yes Patient answered all questions The patient has been examined within 24 hours of the surgical procedure. The History & Physical has been completed within 30 days and I have reviewed it.: Yes Section B - Complete if H&P > 30 days Chief Complaint: Unilateral primary osteoarthritis, left hip Allergies: Allergies Allergy/AdvReac Type Severity Reaction Status Date / Time Sulfa (Sulfonamide Allergy Stomach Verified 11/29/24 14:33 Antibiotics) Upset Plan I have reviewed the history and physical and performed a pertinent physical examination on my patient. No changes have occurred unless specified. Time Spent With Patient Time: Total time managing care of this patient today ____ minutes.
--- NOTE | 2024-12-04 13:04 | PM.OP ---
Brief Operative Note Date of Service: 12/04/24 Pre-op diagnosis: Left hip OA Post-op diagnosis: same Procedure: Left STEFANIA Implants: Rives Trident2 52/ 20 deg lip liner; Accolade2 #3 132/+2.5/36/ceramic Surgeon: Chadwick Silver MD Anesthesia: GETA and local Was an Marking Clerk used for this Procedure?: Yes Marking Clerk: Krishna Segovia Estimated blood loss (mL): 150 IV fluids (mL): 1,000 Pathology: other Condition: stable Disposition: PACU
--- NOTE | 2024-12-04 17:14 | HO.PM.IMCN ---
History of Present Illness Data of Consult Service Date: 12/04/24 Requesting physician: Chadwick Silver Primary Care Provider: Heron Deleon DO, MD HPI Reason for consult: med management 69-year-old female with a history of thyroid disease on levothyroxine, also has osteoarthritis came to the hospital for orthopedic surgery for that. Patient is status post surgery. Patient consult was called for med management. Patient is status post surgery seems to be feeling imrpoving ,denies new c/o. Review of Systems Review of Systems: Yes all other systems are reviewed and are negative [facility] Medical History Osteoarthritis Thyroid disease Surgical History Hx of bilateral cataract extraction Hx of ovarian cystectomy H/O colonoscopy History of total left knee replacement (TKR) History of revision of total knee arthroplasty Social History Household Members: Spouse Housing: House Are you a primary primary care nurse practitioner to a significant other at home: No Do you presently have visiting nurse or other home services: No Alcohol intake: never Comment: counts correct Patient Tobacco Use Status: Never used Tobacco Use of substances other than those prescribed or required for medical reasons: No Have you been hit, kicked, punched, or otherwise hurt by someone within the past year? If so, by whom?: No Do you feel safe in your current relationship?: Yes Is there a partner from a previous relationship who is making you feel unsafe now?: No Are you made to feel afraid or neglected: No Are you DNR?: No Advance Directives: No Advance Directives Information Provided: Yes Advance Directives on File: No Do you have a plan to hurt others: No Plan Recently lost weight without trying: No How much weight loss: Not applicable Eating poorly because of decreased appetite: No Nutrition screen score: 0 Nutrition Risks: No Nutritional Risk Patient : No : No Poor oral hygiene: Yes Current occupational status: retired Current occupation: right hand dominant Meds Allergies Allergy/AdvReac Type Severity Reaction Status Date / Time Sulfa (Sulfonamide Allergy Stomach Verified 11/29/24 14:33 Antibiotics) Upset Active Medications: Current Medications Acetaminophen (Acetaminophen 325 Mg Tablet) 650 mg PO Q6H PRN PRN Reason: Pain, Mild 1-3,fever,headache Aspirin (Aspirin 325 Mg Tablet) 325 mg PO BID [facility] Calcium Carbonate (Calcium Carbonate 750 Mg Tab.Chew) 750 mg PO BID [facility] Celecoxib (Celecoxib 200 Mg Capsule) 200 mg PO BID [facility] Docusate Sodium (Docusate Sodium 100 Mg Capsule) 100 mg PO BID [facility] Hydromorphone HCl (Hydromorphone Hcl 0.5 Mg/0.5 Ml Syringe) 0.25 mg IVPUSH Q5M PRN PRN Reason: Pain, Moderate to Severe (Pain Scale 4-10) Stop: 12/04/24 19:28 Hydromorphone HCl (Hydromorphone Hcl 0.5 Mg/0.5 Ml Syringe) 0.25 mg IVPUSH Q4H PRN; Protocol PRN Reason: Pain, Severe (Pain Scale 7-10) Lactated Ringer's (Lr) 1,000 mls @ 100 mls/hr IVCONT .Q10H [facility] Stop: 12/05/24 08:00 Last Admin: 12/04/24 14:26 Dose: 100 mls/hr Cefazolin Sodium/Dextrose (Ancef) 2 gm in 50 mls @ 100 mls/hr IV POSTOP ONE Stop: 12/04/24 18:29 Levothyroxine Sodium (Levothyroxine Sodium 75 Mcg Tablet) 75 mcg PO DAILY@0600 [facility] Magnesium Hydroxide (Milk Of Magnesia 30 Ml Oral.Susp) 30 ml PO DAILY PRN PRN Reason: Constipation Naloxone HCl (Naloxone Hcl 0.4 Mg/Ml Vial) 0.04 mg IVPUSH Q5M PRN PRN Reason: Excessive sedation or RR < 8 Ondansetron HCl (Ondansetron Hcl 4 Mg/2 Ml Vial) 4 mg IVPUSH ONCE PRN PRN Reason: Nausea and Vomiting Stop: 12/04/24 19:28 Ondansetron HCl (Ondansetron Hcl 4 Mg/2 Ml Vial) 4 mg IVPUSH Q8H PRN PRN Reason: Nausea and Vomiting Last Admin: 12/04/24 14:18 Dose: 4 mg Oxycodone HCl (Oxycodone Hcl Immed Release 5 Mg Tablet) 5 mg PO ONCE PRN PRN Reason: Pain, Moderate(Pain Scale 4-6) if no IV Access Stop: 12/04/24 19:28 Oxycodone HCl (Oxycodone Hcl Immed Release 5 Mg Tablet) 5 mg PO Q4H PRN PRN Reason: Pain, Moderate(Pain Scale 4-6) Oxycodone HCl (Oxycodone Hcl Er 10 Mg Tab.Er.12h) 10 mg PO BID JORDYN Sodium Chloride (0.9 % Sodium Chloride Flush 3 Ml Syringe) 3 ml IVFLUSH QSHIFT JORDYN Last Admin: 12/04/24 17:00 Dose: Not Given Home Medications ?Medication ?Instructions ?Recorded ?Confirmed ?Last Taken ?Type levothyroxine 75 mcg capsule 75 mcg PO DAILY 09/11/24 12/04/24 12/03/24 History rosuvastatin 5 mg tablet 5 mg PO DAILY 09/11/24 12/04/24 12/03/24 History acetaminophen 500 mg tablet 1,000 mg PO Q6H PRN Pain 11/16/24 12/04/24 12/03/24 History calcium carbonate 600 mg PO BID 11/16/24 12/04/24 12/03/24 History ibuprofen 200 mg tablet 400 mg PO Q6H PRN Pain 11/16/24 12/04/24 11/27/24 History Physical Exam Vital Signs and Narrative: Vital Signs: Last Vital Signs Temp 97.5 F 12/04/24 14:00 Pulse 75 12/04/24 14:00 Resp 18 12/04/24 14:00 BP 145/69 H 12/04/24 14:00 Pulse Ox 95 12/04/24 14:00 O2 Del Method Room Air 12/04/24 14:00 BMI result Body Mass Index 33.7 Appearance: Alert.? Oriented X3.? cvs: rrr, s0m1njxxq , no murmur res: clear to auscultation ,no rhonchii or wheezing abd: no rebound or guarding ,nt, bs present. ext pulses present , no cyanosis ,s/pleft tka. neuro: axo3 , nonfocal. Results Labs 12/04/24 08:47 11/29/24 15:19 Imaging Radiologist's Impressions: Impressions Pelvis X-Ray 12/04/24 13:23 IMPRESSION: Post total left hip arthroplasty without complication evident. Electronically signed by: Reece Campoverde MD 12/04/2024 01:42 PM EDT RP Assessment and Plan (1) HLD (hyperlipidemia): Qualifiers: Hyperlipidemia type: unspecified Qualified Code(s): E78.5 - Hyperlipidemia, unspecified Status: Acute (2) Hypothyroidism: Qualifiers: Hypothyroidism type: unspecified Qualified Code(s): E03.9 - Hypothyroidism, unspecified Status: Acute (3) Osteoarthritis of left hip: Qualifiers: Osteoarthritis type: unspecified Qualified Code(s): M16.12 - Unilateral primary osteoarthritis, left hip Status: Acute Plan 69-year-old female with a history of thyroid disease on levothyroxine, also has osteoarthritis came to the hospital for orthopedic surgery for that. Labs from 11/29 reviewed: BMP seems fine H&H from today: 13.7/41.8 Status post Left TKA Management as per surgical team. Possible hypothyroidism: On levothyroxine DVT prophylaxis: SCD as per primary team. We will sign off now, thank you for letting us participate in patient care. Please call hospitalist team and any questions.
[2024-12-05 03:29] VITALS: BP 124/57; PULSE 62; RESP 18; TEMP 36.1; O2SAT 96
[2024-12-05 07:37] LABS: MANUAL DIFF FLAG NO
[2024-12-05 07:41] VITALS: BP 127/56; PULSE 67; RESP 16; TEMP 36.7; O2SAT 95
[2024-12-05] MEDS: oxyCODONE HCl ER 10 MG TAB.ER.12H PO (07:44)
[2024-12-05] MEDS: oxyCODONE HCl Immed Release 5 MG TABLET PO ×2 (07:45→10:29)
[2024-12-05 07:46] LABS: Hematocrit 32.2 % (37.0-47.0); Hemoglobin 10.5 g/dl (12.0-16.0); Imm Gran Abs Auto 0.05 X10*3/uL (0.00-0.03); Imm Gran Pct Auto 0.4 % (0.0-0.4); Lymphocytes Absolute Auto 1.0 X10*3/uL (1.2-4.9); Mean Corpuscular HGB Conc 32.6 g/dl (31.0-35.0); Mean Corpuscular Hemoglobin 29.2 pg (27.0-33.0); Mean Corpuscular Volume 89.7 fL (80.0-98.0); NRBC Abs Auto 0.000 X10*3/uL (0.0-0.012); NRBC Pct Auto 0.0 /100WBC (0.0-0.2); Platelet Count 325 X10*3/uL (160-400); Red Blood Count 3.59 X10*6/uL (4.20-5.50); White Blood Count 11.6 X10*3/uL (4.8-10.8)
[2024-12-05 07:55] LABS: Anion Gap 12 (12-20); Blood Urea Nitrogen 12 mg/dL (9-16); Calcium 8.7 mg/dL (8.4-10.2); Carbon Dioxide 27 mmol/L (22-29); Chloride 109 mmol/L (96-108); Creatinine Clr Calc Pharmacy 75.7; Estimated Glomerular Filt Rate > 60; Potassium 4.5 mmol/L (3.3-5.1); Sodium 143 mmol/L (135-145)
--- NOTE | 2024-12-05 08:43 | PM.DS ---
DS: Providers Provider Date of Service: 12/05/24 Date of discharge: 12/05/24 Primary care physician: Heron Deleon DO, MD Consults: 12/04/24 14:00 Consult to Case Management Routine Comment: lt herminia home with vna Consult to Hospitalist Routine Comment: Consulting Provider: [facility] [place] Reason For Exam: med management DS: Diagnosis Discharge Diagnosis (1) History of total left hip replacement: Status: Acute DS: Summary Hospital Course Hospital Course: .The patient underwent a successful left total hip arthroplasty on 12/04/[address] Silver., she was transferred to PACU and then to the floor to recover. During their stay, their vitals were stable, afebrile at 98.0 . Labs were unremarkable, H/H 10.5/32.2. POD 1 she was started on aspirin 325 mg once a day for DVT ppx, they also received Physical Therapy services twice a day. Physical therapy should include gait training, core and lumbar strength, glute strength. Posterior precautions intact. WBAT. Prior to discharge, her dressing was clean dry and intact. The Aquacel dressing should remain intact and dry at all times. Any concerns with the dressing, please contact orthopedic office. No showering. The plan is to be discharged home with VNA services Physical Therapy : Hip replacement- WBAT with walker, posterior precautions, gait training Use walker for ambulation Limit stair climbing No shower or tub bath No driving for 6 weeks Continue anticoagulant Keep Aquacel dressing clean, dry and intact. Follow up with orthopedics in 2 weeks -Bandage/Incision Site Care: -Ice 20mins at a time -Make sure you use a towel or cloth on your skin as a barrier -DO NOT remove the bandage -Keep Bandage clean, dry and intact -Do not get the bandage wet: -No tub bath, pools or hot tubs -If there are any concerns regarding the bandage please call orthopedics: [phone] -Hip Precautions: -Refrain from laying on side -No crossing the legs -Avoid low chairs and deep couches -Use supportive shoes with nonslip soles -Physical Therapy: -Patient is WBAT with the use of a walker -Strengthening: Quadriceps and hip muscles -Walking: Gait training and gradually increasing distance with walker -Ankle pumps and incentive spirometry to limit the risk of blood clot -Diet: -Resume regular diet as tolerated. -Drink plenty of fluids and eat a high-fiber foods to avoid constipation -This is a common side effect of pain medication) -Take stool softeners as prescribed -Blood Clot Prevention: -Take the prescribed blood thinner (Aspirin) as directed for 6 weeks -Perform ankle pumps and walk frequently with the walker and assistance if needed -Report calf pain, swelling, or shortness of breath immediately Time Attestation Discharge Coordination Time (in mins): 30 Quality: Safe Use of Opioids Does Pt have an Active Cancer Diagnosis on the Problem List?: No Quality: Stroke Does the patient have a stroke diagnosis?: No Physical Exam Vital Signs: Vital Signs: Last Vital Signs Temp 98.0 F 12/05/24 07:41 Pulse 67 12/05/24 07:41 Resp 16 12/05/24 07:41 BP 127/56 L 12/05/24 07:41 Pulse Ox 95 12/05/24 07:41 O2 Del Method Room Air 12/05/24 07:41 BMI result Body Mass Index 33.7 DS: Data Data Completed and Pending Pending studies at discharge: Pending at discharge 12/04/24 12:54 Surgical [PTH] Routine Labs on day of discharge: Laboratory Results - last 24 hr 12/04/24 12/05/24 08:47 06:23 WBC 11.6 H RBC 3.59 L Hgb 13.7 10.5 L D Hct 41.8 32.2 L D MCV 89.7 MCH 29.2 MCHC 32.6 RDW 14.0 Plt Count 325 MPV 10.0 Immature Gran % (Auto) 0.4 Neut % (Auto) 81.5 H Lymph % (Auto) 8.6 L [place] % (Auto) 9.4 Eos % (Auto) 0.0 Baso % (Auto) 0.1 Lymph # (Auto) 1.0 L [place] # (Auto) 1.1 Eos # (Auto) 0.0 Baso # (Auto) 0.0 Abs Immat Gran (auto) 0.05 H Absolute Neuts (auto) 9.5 H Absolute Nucleated RBC 0.000 Nucleated RBC % (auto) 0.0 Sodium 143 Potassium 4.5 Chloride 109 H Carbon Dioxide 27 Anion Gap 12 BUN 12 Creatinine 0.63 Estim Creat Clear Calc 75.7 Estimated GFR > 60 Fasting Glucose 105 H Calcium 8.7 D Discharge Plan Discharge Patient Disposition: Home Health Service Referrals: Krishna Segovia PA-C [Physician Radiation Physicist, Orthopedics] - 1 Week Referral Note: 12/20/24 14:00 [facility] [place] [facility] Krishna Segovia PA-C Discharge Medications: New celecoxib 200 mg Capsule 200 mg PO BID 30 Days Qty: 60 0RF acetaminophen 325 mg Tablet 650 mg PO Q6H PRN (Reason: Pain, Mild 1-3,Fever,Headache) 30 Days Qty: 240 0RF aspirin 325 mg Tablet 325 mg PO BID 42 Days Qty: 84 0RF docusate sodium 100 mg Capsule 100 mg PO BID 14 Days Qty: 28 0RF oxycodone 5 mg Tablet 5 mg PO Q4H PRN (Reason: Pain, Moderate(Pain Scale 4-6)) 7 Days Qty: 42 0RF Rx Instructions: Partial Fill upon patient request. ondansetron 4 mg tablet,disintegrating 4 mg PO Q6H PRN (Reason: nausea and vomiting) 7 Days Qty: 28 0RF Continued (DME) Folding Front Wheeled walker See Rx Instructions .ROUTE .MEDSUPPLY Qty: 1 0RF Rx Instructions: Duration: 99 days calcium carbonate 600 mg calcium (1,500 mg) Tablet 600 mg PO BID rosuvastatin 5 mg tablet 5 mg PO DAILY levothyroxine 75 mcg capsule 75 mcg PO DAILY Discontinued acetaminophen 500 mg Tablet 1,000 mg PO Q6H PRN (Reason: Pain) ibuprofen 200 mg Tablet 400 mg PO Q6H PRN (Reason: Pain) Discharge Orders: Discharge Order (Routine); Ordered 12/05/24 Ordered By: Krishna Segovia Diet: Regular diet Activity on Discharge: Use cane or walker Activity Restrictions/Additional Instructions: Physical Therapy : Hip replacement- WBAT with walker, posterior precautions, gait training Use walker for ambulation Limit stair climbing No shower or tub bath No driving for 6 weeks Continue anticoagulant Keep Aquacel dressing clean, dry and intact. Follow up with orthopedics in 2 weeks -Bandage/Incision Site Care: -Ice 20mins at a time -Make sure you use a towel or cloth on your skin as a barrier -DO NOT remove the bandage -Keep Bandage clean, dry and intact -Do not get the bandage wet: -No tub bath, pools or hot tubs -If there are any concerns regarding the bandage please call orthopedics: [phone] -Hip Precautions: -Refrain from laying on side -No crossing the legs -Avoid low chairs and deep couches -Use supportive shoes with nonslip soles -Physical Therapy: -Patient is WBAT with the use of a walker -Strengthening: Quadriceps and hip muscles -Walking: Gait training and gradually increasing distance with walker -Ankle pumps and incentive spirometry to limit the risk of blood clot -Diet: -Resume regular diet as tolerated. -Drink plenty of fluids and eat a high-fiber foods to avoid constipation -This is a common side effect of pain medication) -Take stool softeners as prescribed -Blood Clot Prevention: -Take the prescribed blood thinner (Aspirin) as directed for 6 weeks -Perform ankle pumps and walk frequently with the walker and assistance if needed -Report calf pain, swelling, or shortness of breath immediately Print Language: Arabic
--- NOTE | 2024-12-05 08:49 | P.F2F_ITS ---
Service Date Service Date: 12/05/24 Encounter Date of encounter: 12/05/24 Reasons for Services Signs and symptoms assessed: Weakness, poor balance, poor gait mechanics Reason for physical therapy: home safety and mobility, therapeutic exercises, restore joint function, gait/transfer training, ADL training and energy conservation Reason for occupational therapy: home safety and mobility, therapeutic exercises, restore joint function, gait/transfer training, ADL training and energy conservation Overseeing Care: Chadwick Silver Homebound: Leaving the home is medically contraindicated at this time without the asist of a device and/or another person due th the listed conditions above and below. Reason homebound: unsteady gait / fall risk, pain with ambulation, pain with transfers, poor balance / fall risk and unable to drive Homebound supporting statement: Pt. is considered home bound due to recent surgery. Unable to drive, poor balance, poor gait mechanics. Certification: Based on the above findings, I certify that this patient is confined to the home and needs intermittent [facility] care, physical therapy and/or speech therapy, or continues to need occupational therapy. The patient is under my care, and I have initiated the establishment of the plan of care. The patient will be followed by a physician who will periodically review the plan of care. Time Spent With Patient Time: Total time managing care of this patient today ____ minutes.
--- NOTE | 2024-12-05 08:53 | HO.POSTANES ---
Post Anesthesia Evaluation Post Anesthesia Evaluation Date of Service: 12/05/24 Vital Signs: Vital Signs Temp Pulse Resp BP Pulse Ox O2 Del Method 12/05/24 07:41 98.0 F 67 16 127/56 L 95 Room Air 12/05/24 03:29 97.0 F 62 18 124/57 L 96 Room Air 12/04/24 23:53 97.8 F 73 18 130/60 96 Room Air Anesthesia: General Mental Status: Awake Pain Control: Satisfactory Nausea/Vomiting: None Hydration: Adequate Anesthesia-Related Issues: No Anes. Related Issues
--- NOTE | 2024-12-05 09:37 | MHC.CM.PN ---
S/P LTHA Lives with spouse Independent at baseline DME Walker cane prn requested copy HCP DP home with [facility] Patient has arranged for private transportation home.
[2024-12-05 10:00] VITALS: BP 136/73; PULSE 81; RESP 16; TEMP 36.7; O2SAT 97
--- NOTE | 2024-12-07 09:11 | W.PM.OPN ---
Operative Note Operative Note Date of Service: 12/04/24 Narrative: Date of Service: 12/04/24 Pre-op diagnosis: Left hip OA Post-op diagnosis: same Procedure: Left STEFANIA Implants: [place] Trident2 52/ 20 deg lip liner; Accolade2 #3 132/+2.5/36/ceramic Surgeon: Chadwick Silver MD Anesthesia: GETA and local Was an Home Health Travel Pt used for this Procedure?: Yes Home Health Travel Pt: Krishna Segovia Estimated blood loss (mL): 150 IV fluids (mL): 1,000 Pathology: other Condition: stable Disposition: PACU Procedure in detail: Patient was brought into the operating room and placed in the right lateral decubitus position. All bony prominences were well padded and the limb was prepped and draped in standard sterile fashion. A time-out was called to identify proper site procedure proper surgeon IV antibiotics and 1 g of tranexamic acid were administered. I began by making a curvilinear incision over the posterolateral aspect of the greater trochanter. Dissection was taken down to the tensor fascia which was incised in line with the incision and a Charnley retractor was placed. Cautery was used to maintain hemostasis. The hip was internally rotated and the external rotators were identified. The vessels were cauterized and a full-thickness capsular/external rotator layer was developed starting just distal to the piriformis. This layer was tagged and a dull Hohmann retractor was placed underneath the neck in the hip was dislocated. A neck cut was made 1 cm proximal to the lesser trochanter and the head and neck were removed and measured 46-47 mm on the back table. The head was deformed and eburnated. I then removed the labrum and cauterized the fovea. There was a diminutive posterior wall and erosion anterosuperiorly. I started with a 42 reamer low and re-established a nomally cup center of roation. I reamed up to a 52. At this point there was no room to go up given the posterior wall and the cup was stable. Therefore I impacted in a 52mm multi hole cup in 45 deg of ionclination and 25 deg of version. I then inserted three 6.5 mm acetabular screws into the anterosuperior safe zone using standard AO technique. I then placed a 20 deg posterior lipped liner and turned my attention to the femur. I identified the piriformis insertion and a cookied cutter was placed just posterior and slightly lateral. The medius tendon was protected with a Hibs retractor. A Charnley awl was inserted in the canal and a curved curette used to remove the lateral bone. I irrigated copiously. I then sequentially broached in the patient's natural version to a size 3 and placed my trial implants. I used a #3/132/+0 based on my pre-operative template. I took the hip through a full ROM. It was not tight and was stable in FADIR and anteriorly. Therefore, I removed all instrumentation and copiously irrigated. I placed my final femoral implant and again took the hip through range of motion and was satisfied with the stability and length using a +2.5 36.. The final +2.5 implant was impacted in place and the hip reduced. I then irrigated copiously and placed 1 g of local tranexamic acid. 14ml of Zynrelef was injected into the capsule and under the ITB and sub q tissues prior to each layer being closed. I performed a capsular closure with 2.0 fiberwire, Owen's fascia with 0 Vicryl, subcuticular with 2-0 Vicryl and the skin with radha. Patient was placed into a sterile dressing. Patient was extubated brought to the recovery room in stable condition. There were no known complications.
== END 2024-12-05 10:29 | disposition home health service (06) ==
LOC: HO.SSS 08:30 → HO.S3 13:23
PROVIDERS: Physician Assistant; PCP Internal Medicine; Visit Provider Orthopaedic Surgery
PROC: (CPT 27130; principal; 2024-12-04 10:30)
DX: M16.12 Unilateral primary osteoarthritis, left hip (principal); E78.5 Hyperlipidemia, unspecified; E03.9 Hypothyroidism, unspecified; Z79.1 Long term (current) use of non-steroidal anti-inflammatories (NSAID); Z79.899 Other long term (current) drug therapy; Z88.2 Allergy status to sulfonamides; Z96.652 Presence of left artificial knee joint; Z98.890 Other specified postprocedural states; Z99.89 Dependence on other enabling machines and devices
CPT/HCPCS: 27130; 36415; 72170; 80048; 80053; 85014; 85018; 85025; 85027; 86850; 86900; 86901; 87640; 87641; 88304; 88311; 97162; 97165; C1713; C1776; J0131; J0616; J0668; J0690; J1100; J2003; J2405; J2704; J2795; J3010; J7120

== ENCOUNTER → 2024-12-04 08:29 | Outpatient (BNV) | payer MEDICARE, OTHER, SELFPAY | PROVIDERS: PCP Internal Medicine; Visit Provider Internal Medicine | DX: E78.5 Hyperlipidemia, unspecified (principal); E03.9 Hypothyroidism, unspecified; M16.12 Unilateral primary osteoarthritis, left hip | CPT/HCPCS: 99221 ==

== ENCOUNTER → 2024-12-04 08:29 | Outpatient (BNV) | payer MEDICARE, OTHER, SELFPAY | PROVIDERS: PCP Internal Medicine; Visit Provider Orthopaedic Surgery | DX: Z47.1 Aftercare following joint replacement surgery (principal); Z96.642 Presence of left artificial hip joint | CPT/HCPCS: 27130; 99024; G0180 ==

== ENCOUNTER → 2024-12-04 13:16 | Outpatient (BNV) | payer MEDICARE, OTHER, SELFPAY | PROVIDERS: PCP Internal Medicine; Visit Provider Radiology Diagnostic Radiology | DX: Z96.642 Presence of left artificial hip joint (principal) | CPT/HCPCS: 72170 ==

== ENCOUNTER 2024-12-20 13:39 | Outpatient (AMB) | payer MEDICARE, OTHER, SELFPAY ==
--- OUTSIDE RECORDS SUMMARY | 2006-06-27 23:00 | XMS_ITS | Encounter Summary ---
Author Organization [facility] Address [address] [place] [address] Phone Care Team Providers Care Automobile Drivers Name Role Phone Unavailable Primary Care Provider Unavailabl e Encounter Details Date Type Department Care Team ([facility] st Contact Info) Description 06/28/2006 Hospital Encounter [facility] IMG OUTSIDE IMG [address] [place] [address] Maxi Andrew MD [address] [facility] 3 [place] [address] [email or web address] Social History Tobacco Use Types Packs/Day Years Used Date Smoking Tobacco: Never Smokeless Tobacco: Never Alcohol Use Standard Drinks/Week Comments Not Currently 0 (1 standard drink = 0.6 oz pur e alcohol) Education Answer Date Recorded Are you interested in more education? Not on milton e 09/16/2023 Are you concerned about learning? Not on file 09/16/2023 No 09/16/2023 No 09/16/2023 Food Answer Date Recorded Within the past 6 months we worried whether our food would run out before we got money to buy more. Never True 03/09/2024 Within the past 6 months the food we bought just didn't last and we didn't have enough money to get more. Never True Residential Stability Answer Date Recor ded What is your housing situation today? I have tray sing 03/09/2024 How many times have you move d in the past 12 months? Zero (I did not move) 03/09/2024 Paying for Meds Answer Date Recorded Do you have trouble paying for medicines? No 03/09/2024 Paying Utility Bills Answer Date Record ed Do you have trouble paying your heating or elect ricity bill? No 03/09/2024 Transportation Answer Date Recorded Has the lack of transportati on kept you from medical appointments or from getting medications? No 03/09/2024 Digital Access Answer Date Recorded No 03/09/2024 Yes 03/09/2024 Do you have reliable internet access at home? Ye s 03/09/2024 Do you have a device (e.g., phone, tablet, computer) with a working camera? Yes 03/09/2024 Intimate Partner Violence Answer Date R ecorded Are you denied basic needs s uch as food, clothing, or medical care? No 03/09/2024 In the past 12 months have y ou been in a relationship with a person who hurts, threatens, or tries to control you? No 03/09/2024 Are you denied basic needs s uch as food, clothing, or medical care? No 03/09/2024 In the past 12 months have y ou been in a relationship with a person who hurts, threatens, or tries to control you? No 03/09/2024 Comments No Sex and Gender Information Value Date Recorded Sex Assigned at Female 09/16/2023 9:05 AM EDT Legal Sex Female 8:59 AM EDT Gender Identity Female 09/16/2023 9:05 AM EDT Sexual Orientation Straight 09/16/2023 9: 05 AM EDT documented as of this encounter Functional Status * Calculated C-SSRS Risk Score (Lifetime/Recent) Answer Date of Assessment Author No Risk Indicated 03/09/2024 3:59 PM Isi Monge RN * [place] Suicide Severity Rating Scale (Screener/Recent Self-Report) Question Answer Date of Assessment Author 1. Wish to be (Past 1 Month) No 03/09/2024 3:59 PM Isi Monge Ma, RN 2. Non-Specific Active Suicidal Thoughts (Past 1 Month) No 03/09/2024 3:59 PM Isi Monge Ma rupesh, RN 6. Suicidal Behavior (Lifetime) No 03/09/2024 3:59 PM EST Isi Cam Ma, RN documented as of this encounter Plan of Treatment Not on file documented as of this encounter Procedures Procedure Name Priority Date/Time Associated Diagnosis Comments XR LOWER EXTREMITY OUTSIDE (NO INTERPRETATION) Routine 06/28/2006 12:00 AM EDT documented in this encounter Results * XR Lower Extremity Outside (No Interpretation) (06/28/2006 12:00 AM EDT) Narrative [facility] IMG INTERFACES - 12/28/2023 10:43 AM EST This study is for PACS storage only and not for interpretation. us Maxi Andrew MD IMG OUTSIDE IMAGING W/OU T INTERPRETATION Final Result [facility] IMG INTERFACES documented in this encounter Visit Diagnoses Not on filedocumented in this encounter Additional Source Comments The information contained in this document represents components of the legal health record. It is not the complete legal health record.[facility]
--- NOTE | 2024-12-20 13:42 | MHC.OFFVIS ---
Intake Visit Reasons: 2WKPO: L STEFANIA w/NE 12/04/24 Intake Note: Katie is a 69 year old female who presents today post operatively after undergoing a left STEFANIA, performed by Dr. Silver on 12/04/24. Today patient reports her discomfort is a lot better than before surgery, stating no complaints on her pain. She does complain of nausea and constipation. She has not been taking the pain medication as it is not needed however she was suggested to discontinue celebrex to see if this helped with her nausea. Allergies Sulfa (Sulfonamide Antibiotics) Allergy (Verified 11/29/24 14:33) Stomach Upset Medication List - Last Reconciled 12/20/24 by Krishna Segovia PA-C acetaminophen 650 mg (2 x 325 mg) PO Q6H PRN 30 days aspirin 325 mg PO BID 42 days calcium carbonate 600 mg PO BID docusate sodium 100 mg PO BID 14 days [Folding Front Wheeled walker Duration: 99 days] levothyroxine 75 mcg PO DAILY ondansetron 4 mg PO Q6H PRN 7 days rosuvastatin 5 mg PO DAILY HPI HPI 2WKPO: L STEFANIA w/NE 12/04/24: Details: 69-year-old female returns to the office today 2 weeks status post left total hip arthroplasty on 12/04/[address] Silver. She comes in today ambulating with a cane. She has started her outpatient physical therapy and is going well. She has no concerns today. [facility], [facility] Medical History Osteoarthritis Thyroid disease Surgical History Hx of bilateral cataract extraction Hx of ovarian cystectomy H/O colonoscopy History of total left knee replacement (TKR) History of revision of total knee arthroplasty Social History Household Members: Spouse Housing: House Are you a primary plant care worker to a significant other at home: No Do you presently have visiting nurse or other home services: No Alcohol intake: never Comment: counts correct Patient Tobacco Use Status: Never used Tobacco service: No Current occupational status: retired Current occupation: right hand dominant Review of Systems Const All systems reviewed & are unremarkable except as noted in HPI and below Physical Exam Extrem Other: Left hip incision is clean dry and intact. No erythema or ecchymosis. She has no pain with hip flexion or range of motion. Calf supple nontender neurovascularly intact. Assessment & Plan Assessment & Plan (1) History of total left hip replacement: Code(s): Z96.642 - Presence of left artificial hip joint Category: Surgical Plan: Leonor removed today Steri-Strips applied. The patient will continue working with physical therapy to improve strength and gait training. I reminded the patient no dental work until 3 months post op and he will require antibiotics for dental prophylaxis. Patient was reminded no driving until 6 weeks postop. They will return in 4 weeks for routine follow up, sooner if needed. Medications: Refilled ondansetron 4 mg PO Q6H PRN 28 tabs 0RF nausea and vomiting 7 days Coding Level of Care Code Global (05699) Diagnoses History of total left hip replacement Z96.642
--- OUTSIDE RECORDS SUMMARY | 2024-12-20 16:39 | XMS_ITS | Clinical Summary ---
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 Code 62476 -------- FINAL REPORT -------- Dictated By: Kenny Jorgensen Dictated Date: 08/07/2024 09:53 ET Assigned Physician: Kenny Jorgensen Reviewed and Electronically Signed By: Kenny Jorgensen Signed Date: 08/07/2024 09:55 ET Workstation ID: [id number] Transcribed By: Self Edit Transcribed Date: 08/07/2024 [...] density of the femurs bilaterally is 0.666 gm/[id number] is 66% of that of young normals [...] probability of hip fracture of 4.6%. Code 59227 -------- FINAL REPORT -------- Dictated By: Kenny Jorgensen Dictated Date: 08/07/2024 09:53 ET Assigned Physician: Kenny Jorgensen Reviewed and Electronically Signed By: Kenny Jorgensen Signed Date: 08/07/2024 09:55 ET Workstation ID: [id number] Transcribed By: Self Edit Transcribed Date: 08/07/2024 [...] year. Mammo Location: [facility], [address] [place] [address], [id number], . -------- FINAL REPORT -------- Dictated By: Molly Martell Dictated Date: 08/07/2024 14:34 ET Assigned Physician: Molly Martell Reviewed and Electronically Signed By: Molly Martell Signed Date: 08/07/2024 14:35 ET Workstation ID: [id number] Transcribed By: Self Edit Transcribed Date: 08/07/2024 [...] year. Mammo Location: [facility], [address] [place] [address], [id number], . -------- FINAL REPORT -------- Dictated By: Molly Martell Dictated Date: 08/07/2024 14:34 ET Assigned Physician: Molly Martell Reviewed and Electronically Signed By: Molly Martell Signed Date: 08/07/2024 14:35 ET Workstation ID: [id number] Transcribed By: Self Edit Transcribed Date: 08/07/2024 14:34 ET us Heron Deleon DO IMG BI PROCEDURES Final Resul t * Lipid panel with reflex to direct LDL (05/09/2024 11:22 AM EDT) Cholesterol 184 0 - 200 mg/dL LAB CHEMISTRY METHOD 05/09/2024 4:10 PM EDT [facility] Triglycerides 83 0 - 150 mg/dL LAB CHEMISTRY METHOD 05/09/2024 4:10 PM EDT [facility] HDL 80 >=40 mg/dL LAB CHEMISTRY METHOD 05/09/2024 4:10 PM EDT [facility] LDL Calculated 87 0 - 100 mg/dL LAB CHEMISTRY METHOD 05/09/2024 4:10 PM EDT [facility] VLDL Cholesterol Armin 16.6 mg/dL LAB CHEMISTRY METHOD 05/09/2024 4:10 PM EDT [facility] Non HDL Chol. (LDL+VLDL) 104 <145 mg/dL LAB CHEMISTRY METHOD 05/09/2024 4:10 PM EDT [facility] Chol/HDL Ratio 2.3 0.0 - 4.4 LAB CHEMISTRY METHOD 05/09/2024 4:10 PM EDT [facility] Blood Venous blood specimen / Unknown Venipuncture / Unknown 05/09/2024 11:22 AM EDT 05/09/2024 11:22 AM EDT Britt Parmar NP LAB BLOOD ORDERABLES Fi nal Result [facility] [address] [place] [address], from Last 3 Months or Most Recently Relevant to Health Maintenance Insurance MEDICARE [facility] Care Teams Powder Truck Driver Relationship Specialty Start Date End Date Britt Parmar, CHACHA [address] [place] [address] [place] [address] PCP - General 07/08/23
--- OUTSIDE RECORDS SUMMARY | 2024-12-20 16:39 | XMS_ITS | Clinical Summary ---
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 Left: Knee GUNNAR 10/09/2025 [id number] / / [id number] Description:The implant type , laterality (when applicable), size, and expiration date have been visually and verbally confirmed by the Surgeon, Circulating RN and Scrub Personnel. Insurance MEDICARE PART A & B [facility] MEDICARE SUPPLEMENT MEDICARE PART A & B [employer] MEDICARE SUPPLEMENT MEDICARE PART A & B [facility] [employer] MEDICARE SUPPLEMENT MEDICARE PART A & B [employer] MEDICARE SUPPLEMENT MEDICARE PART A & B [employer] MEDICARE SUPPLEMENT MEDICARE PART A & B [facility] [employer] MEDICARE SUPPLEMENT Care Teams Meat Packer Relationship Specialty Start Date End Date Heron Deleon DO [address] [place] [address] [address] [place] [id number] PCP - General Internal Medicine 09/16/23 Additional Source Comments The information contained in this document represents components of the legal health record. It is not the complete legal health record.[facility]
--- OUTSIDE RECORDS SUMMARY | 2024-12-20 16:40 | XMS_ITS | Data Portability ---
Author Organization [facility], [facility] Address [address] [place] [address] Care Team Providers Care Job Printer Name Role Phone CHATO BAXTER Primary Care [...] of continued conservative management versus surgical management. [email or web address] Not available 04/23/2024 16:47:25 08/02/2024 08/02/2024 I [...] of continued conservative management versus surgical management. [email or web address] Not available 08/02/2024 07:53:30 11/05/2024 11/05/2024 I [...] of continued conservative management versus surgical management. [email or web address] Not available 11/05/2024 08:03:38 Plan of Treatment [...] knee pain room 218 2024 025 [email or web address] [facility], [address] [facility], [facility] [address], [place], [address], 05/07/2024 15:45:56 Medication Orders None recorded . Patient TargetsNo targets recorded. Patient InstructionsNo instructions recorded. Reason for Referral None Reported. Results Created Date Observation Date Name Description Value Unit Range Abnormal Flag Note LastModifiedBy Organization Detail LastModifiedTime 04/24/1904/23/2024 XR, knee, 4 or more view http:/ [email or web address] ?Encry pted=s hAaTro YD8dLq bEUv6g %2BXZw aYqtaq 0bqfl% 2Fg9IQ a4ajBk vP9nXo QUaueC m3YtLR FvZl[address] HZtai3 9z0314 AC0KqY n2FV6K lKiQtr MwF INTERFACE [facility] [place] [facility] [address] [facility] [address], [place], [address], 04/23/2024 16:12:24 04/24/19 25 04/23/2024 XR, knee, 4 or more view http:/ [email or web address] ?Encry pted=s hAaTro YD8dLq bEUv6g %2BXZw aYqtaq 0bqfl% 2Fg9IQ a4ajBk vP9nXo QUaueC m3YtLR FvZl[address] [address] AC0KqY n2FV6K lKiQtr MwF INTERFACE [facility] [address] [facility] [address], [place], [address], 04/23/2024 16:12:26 Result Notes Documentation Provider Name and Address Organization Details Recorded Time Xr, Knee, 4 Or More View : [email or web address]? Encrypted=xcMwSssTU9aZolW Uv6g%7XZPtsGjxqy9sbck%2Fg 0HNa3mhCcfK5wWhHKghkIu9Pk NIFdGwdTBJ2mBgPLqag42f391 0SP2SgGd3TU3VjJwYehCpS Not Available [facility] 04/23/2024 16:12: 24 Xr, Knee, 4 Or More View : [email or web address] Encrypted=nzTaJgwNB8uSrbW Uv6g%8IIZrsDdlnh9iegw%2Fg 3BXc9qfCilX5sOxBRskmNh7Tm DKCmTbiWOX4zAkYPhuq43s747 5NI5ZeFj7NY9EyLtCobYbK Not Available [facility] 04/23/2024 16:12: 26 Problems Name Problem SNOMED Code Status Onset Date Resolution Date Notes Provider Name and Address Organization Details Recorded Time No complaint s 229674674 Active Status: 'I'; Not Available [facility] 4 09:26:48 Idiopathi c osteoarth ritis 826183468 Active 2016 Problem Code: M17.0; Problem Code Type: ICD-10; Status: 'A'; Not Available [facility] 4 11:27:38 Pain of right knee joint 195912446940 100 Active 2016 Problem Code: M25.561; Problem Code Type: ICD-10; Status: 'A'; ELSA navarrete [place] - [facility] 15:58:55 History of major orthopedi c surgery 629036050 Active 2021 Status: 'A'; Not Available [facility] 4 11:27:38 Osteoarth ritis of right knee joint 909852155557 100 Active 2023 Kalyani Willoughby PA-C [address], [place], [address] , [facility] 4 08:38:20 Problem Notes None recorded. Procedures Surgical History Date Name Laterality Status Provider Name and Address Organization Details Recorded Time 5 JZKNEE INJ completed Ezequiel Prater PA-C [address], [place], [address], [facility] 11/05/2024 08:03:41 5 JZKNEE INJ completed Ezequiel Prater PA-C [address], [place], [address], [facility] 08/02/2024 07:53:18 5 JZKNEE INJ completed Ezequiel Prater PA-C [address], [place], [address], [facility] 04/23/2024 11:00:43 5 Orthopedic Surgery completed KAYLIA L'HEUREUX [facility] 04/23/2024 15:57:49 4 Sports Knee 4&1 completed Kalyani Willoughby PA-C [address], [place], [address], [facility] 10/26/2023 12:03:03 4 Sports Knee 4&1 completed Kalyani Willoughby PA-C [address], [place], [address], [facility] 07/28/2023 08:38:15 1 Knee Surgery completed TOMASZ Chatterjee [facility] 10/27/2023 09:38:46 01/24/192 5 Knee Surgery completed KAYLIA L'HEUREUX [place] - [facility] 04/23/2024 15:57:49 Imaging Results None recorded. Procedure Notes None recorded. Medical Equipment None Reported. Allergies Allergen ID Allergen Name Allergen Category Reaction Reaction Severity Criticality Documentation Date Start Date Code Code System Note Provider Name and Address Organization Details Recorded Time 78016 sulfur medicatio n Not available Not available Not available 04/18/20232022 73363 RxNorm Not Available [facility] 12:44:35 Medications Name Sig Start Date Stop [...] Updated DateTime 04/23/2024 149.86 cm 34.3 kg/m2 99832.7 g ELSA L'HEURJIM [facility] 04/23/2024 15:58:02 Date Recorded Body height Body mass index (BMI) Body weight Provider Name and Address Organization Details Last Updated DateTime 07/28/2023 149.86 cm 34.3 kg/m2 57330.7 g TOMASZ Chatterjee [facility] 07/28/2023 10:28:33 Date Recorded Body height Body mass index (BMI) Body weight Provider Name and Address Organization Details Last Updated DateTime 08/02/2024 149.86 cm 34.3 kg/m2 49610.7 g SCOTTIE OCASIO [facility] 08/02/2024 10:38:17 Date Recorded Body height Body mass index (BMI) Body weight Provider Name and Address Organization Details Last Updated DateTime 10/27/2023 149.86 cm 34.3 kg/m2 31076.7 g TOMASZ PANKAJ Chatterjee [facility] 10/27/2023 09:39:09 Date Recorded Body height Body mass index (BMI) Body weight Provider Name and Address Organization Details Last Updated DateTime 11/05/2024 149.86 cm 34.3 kg/m2 50512.7 g SANJUANITA Knottemir [facility] 11/05/2024 10:06:53 Social History Question Answer Notes LastModified by Vinobo ion Details LastModified Time Tobacco Smoking Status Never Smoker TOMASZNAOMY navarrete [facility] 07/28/2023 10:28:45 Which Of Your Hands Is Dominant? Right Information not available 07/28/2023 What Is Your Relationship Status? [email or web address] Information not available 08/02/2024 Sex: Unknown Functional Status Question Answer Note LastModified by [employer] ion Details LastModified Time How many times [...] Disease N Heart Trouble N Heart Attack ([place]) N Gastrointestinal Disease N Cholesterol Y Diabetes [...] ICD10 Code Diagnosis IMO Codes Diagnosis Note [id number] Kalyani Willoughby PA-C [place] [address] [place] [address] 07/28/2023 10:05:17 08/17/2023 14:32:15 Osteoarthritis of right knee joint 1399587487 18023 M17.11 History of total knee arthroplasty 5418772808 105 Z96.059 [id number] Kalyani Willoughby PA-C [address] [place] [address] 10/27/2023 09:31:14 11/09/2023 10:31:16 Osteoarthritis of right knee joint 0534621472 M17.11 History of total knee arthroplasty 4527153704 105 Z96.843 [id number] FRANKLYN JinA - [place] [place] [address] 04/23/2024 15:40:10 05/07/2024 15:45:55 Osteoarthritis of right knee joint 3280064109 75463 M17.11 1894601 Pain of ri ght knee joint 8244795718 89454 M25.[facility] [id number] Ezequiel Prater PA-C [facility] [place] [address] [place] [address] 08/02/2024 10:19:33 08/15/2024 08:35:08 Osteoarthritis of right knee joint 6443233301 M17.11 3589420 [id number] Ezequiel Prater PA-C [facility] [place] [address] [place] [address] 11/05/2024 09:38:41 11/14/2024 09:47:53 Osteoarthritis of right knee joint 8817072393 11961 M17.11 [id number] Health Concerns Section Related Observation LastModified by Organization Detai ls LastModified Time None Recorded Concern Status LastModified by Organization Details LastModified Time None Recorded Advance Directives Directive None Recorded Payers Insurance Date Sequence Insurance Name Policy Number Policy Nunez Covered Member ID Nunez Member ID Guarantor Name 11/05/2024 1 [place]ARE [place]: [employer] Katie Hernandez [id number] Katie Hernandez 11/14/2024 2 [employer] [facility] [place] [employer] (INDEMNITY) [id number] 2 Katie Hernandez [id number] Katie Hernandez Notes Date Note Type Note Provider Name and Address Organization Details Recorded Time 07/28/2023 text/html I am seeing the patient today under the supervision of Dr. Duenas who was available but who did not see the patient. HPI:Patient presents today follow-up regarding their Right knee. Previous injection 04/22/23 in [place] gave good relief until recent. Twyw-vaa-isuhbea medications are helping somewhat but not significantly. [...] going to seek a second opinion in [place], recommended she obtain all of her records prior to going. Follow up in 3 months for her right knee injection. All of their concerns were addressed and they understand and agree with the plan. Speech recognition fixed wing pilot software was used to create portions of this document. An attempt at proofreading has been made to minimize errors. Please call for corrections. Kalyani Willoughby PA-C [address] [place] [address] [address], [place], [address], [facility] [place] - [facility] 07/28/2023 11:45:09 10/27/2023 text/html I am seeing the patient today under the supervision of Dr. Little who was available but who did not see the patient. HPI:Patient presents today follow-up regarding their Right knee. Previous injection 07/28/23 in [place] gave good relief until recent. Uihe-pjs-jlxqekk medications are helping somewhat but not significantly. [...] She has a second opinon appointment at [facility] in December. Past family, medical, social history [...] - patient is seeking second opinion in [place] Plan:Patient elected to proceed with repeat right knee cortisone injection today. Discussed utilizing her cane, low impact exercises and over the counter anti-inflammatories as needed. Regarding her left knee, we discussed a small percentage of patients who undergo joint replacement continue to have pain and are unhappy. She discussed she is going to seek a second opinion in [place], recommended she obtain all of her records prior to going. Follow up in 3 months for her right knee injection. All of their concerns were addressed and they understand and agree with the plan. Speech recognition fixed wing pilot software was used to create portions of this document. An attempt at proofreading has been made to minimize errors. Please call for corrections. Kalyani Willoughby PA-C [address] [facility] [address], [place], [address], [facility] - [facility] 10/27/2023 10:04:20 OBGyn Episode No OBEpisode recorded.
--- OUTSIDE RECORDS SUMMARY | 2024-12-20 16:40 | XMS_ITS | Encounter Summary ---
Author Organization [facility] Address [address] [place] [address] Phone Care Team Providers Care Medical Office Technologist Name Role Phone Heron Deleon DO Primary Care Provider [phone] Encounter Details Date Type Department Care Team (Late st Contact Info) Description 03/09/2024 Procedure Pass [facility] PERIOPERATIVE DEPT [address] [place], [place] [phone] Social History Tobacco Use Types Packs/Day Years [...] 03/09/2024 3:59 PM Isi Monge RN * [place] Suicide Severity Rating Scale (Screener/Recent Self-Report) Question Answer Date of Assessment Author 1. Wish to be (Past 1 Month) No 03/09/2024 3:59 PM Isi Monge [place], RN 2. Non-Specific Active Suicidal Thoughts (Past 1 Month) No 03/09/2024 3:59 PM Isi Monge [place], RN 6. Suicidal Behavior (Lifetime) No 03/09/2024 3:59 PM EST Lander, Isi Ma rupesh, RN documented as of this encounter Plan of Treatment Not on file documented as of this encounter Visit Diagnoses Not on filedocumented in this encounter Care Teams Medical Office Technologist Relationship Specialty Start Date End Date Heron Deleon DO [address] [place] [address] [address] [place] [address] PCP - General Internal Medicine 09/16/23 documented as of this encounter Additional Source Comments The information contained in this document represents components of the legal health record. It is not the complete legal health record.[facility]
--- OUTSIDE RECORDS SUMMARY | 2024-12-20 16:40 | XMS_ITS | Encounter Summary ---
Author Organization [facility] Address [address] [place] [address] Phone Care Team Providers Care Staging Technician Name Role Phone Heron Deleon DO Primary Care Provider [phone] Encounter Details Date Type Department Care Team (Late st Contact Info) Description 01/25/2024 Transcribe Orders [facility] Lab Main [address] [place], [place] [id number] Martha Cleary, BETTE [address] [id number] [email or web address] Social History Tobacco Use Types Packs/Day Years [...] on filedocumented in this encounter Care Teams Staging Technician Relationship Specialty Start Date End Date Heron Deleon DO [address] [place] [address] [address] [place] [address] PCP - General Internal Medicine 09/16/23 documented as of this encounter Additional Source Comments The information contained in this document represents components of the legal health record. It is not the complete legal health record.[facility]
== END 2024-12-20 15:01 | disposition home or self-care (01) ==
LOC: HO.HOS 13:39
PROVIDERS: PCP Internal Medicine; Visit Provider Physician Assistant
DX: Z96.642 Presence of left artificial hip joint (principal)
CPT/HCPCS: 99024

== ENCOUNTER → 2024-12-20 13:39 | Outpatient (BNVA) | payer MEDICARE, OTHER, SELFPAY | PROVIDERS: PCP Internal Medicine; Visit Provider Physician Assistant | DX: Z47.1 Aftercare following joint replacement surgery (principal); Z96.642 Presence of left artificial hip joint | CPT/HCPCS: 99212 ==

== ENCOUNTER 2025-01-17 13:14 | Outpatient (AMB) | payer MEDICARE, OTHER, SELFPAY ==
--- NOTE | 2025-01-17 14:06 | A.OFFVIS_ITS ---
Intake Visit Reasons: 2NDPO: L STEFANIA w/NE 12/04/24 Intake Note: Katie is a 69 year old female who presents today for a post operative appointment about 6 weeks s/p Left STEFANIA 12/04/2024. Patient reports that the hip is feeling great. Allergies Sulfa (Sulfonamide Antibiotics) Allergy (Verified 01/17/25 14:07) Stomach Upset HPI HPI 2NDPO: L STEFANIA w/NE 12/04/24: Details: Katie is a 69 year old female who presents today for a post operative appointment about 6 weeks s/p Left STEFANIA 12/04/2024. Patient reports that the hip is feeling great. PFS Medical History Osteoarthritis Thyroid disease Surgical History Hx of bilateral cataract extraction Hx of ovarian cystectomy H/O colonoscopy History of total left knee replacement (TKR) History of revision of total knee arthroplasty Social History Household Members: Spouse Housing: House Are you a primary care management coordinator to a significant other at home: No Do you presently have visiting nurse or other home services: No Alcohol intake: never Comment: counts correct Patient Tobacco Use Status: Never used Tobacco service: No Current occupational status: retired Current occupation: right hand dominant Physical Exam Exam Exam: Mild Trendelenburg gait. Incision clean dry and intact. Dorsalis pedis pulse 2 +. No pain with hip range of motion. Assessment & Plan Assessment & Plan (1) History of total left hip replacement: Code(s): Z96.642 - Presence of left artificial hip joint Category: Surgical Plan: Doing well status post left hip replacement. she feels well. She has no pain with range of motion. She may continue PT and follow up in 6 weeks. May discontinue any postoperative DVT prophylactic agents. Coding Level of Care Code Global (42706) Diagnoses History of total left hip replacement Z96.642
== END 2025-01-17 15:04 | disposition home or self-care (01) ==
LOC: HO.HOS 13:15
PROVIDERS: PCP Internal Medicine; Visit Provider Orthopaedic Surgery
DX: Z96.642 Presence of left artificial hip joint (principal)
CPT/HCPCS: 99024

== ENCOUNTER → 2025-01-17 13:14 | Outpatient (BNVA) | payer MEDICARE, OTHER, SELFPAY | PROVIDERS: PCP Internal Medicine; Visit Provider Orthopaedic Surgery | DX: Z98.890 Other specified postprocedural states (principal); Z96.642 Presence of left artificial hip joint | CPT/HCPCS: 99212 ==